=== PATIENT | male | born 1965 | race Caucasian/White ===

== ENCOUNTER → 2016-09-13 | Outpatient (CLI) | payer MEDICARE, OTHER ==
[~2016-09-13] MED LIST: ACETAMINOPHEN650 M1 PO; ADVAIR 250-501 EAC1 PO; ALBUTEROL17 GM INH; ALPRAZOLAM1 MG PO; BACLOFEN10 MG PO; D-20002000 UNIT PO; FOLIC ACID1 MG PO; HYDROCODON-ACE1 EAC5 PO; INDERAL20 MG PO; K-DUR20 ME2 PO; LEVAQUIN PO; LEVAQUIN750 M1 PO; LIORESAL10 MG PO; LITHIUM PO; LITHOBID SR300 MG PO; MOBIC15 MG PO; MODAFINIL200 MG PO; OMNICEF300 M1 PO; OMNICEF300 MG PO; PERCOCET 5-3251 TAB PO; PERPHENAZINE2 MG PO; PHENERGAN PO; PHENERGAN25 M1 DOB; PREDNISONE PO; PREVACID 24HR15 MG PO; PROAIR RESPICL90 MCG INH; PROTONIX PO; REMERON15 MG PO; SEROQUEL PO; SEROQUEL400 MG PO; TESSALON PERLE100 M1 PO; VISTARIL50 MG PO; VITAMIN D31000 UNIT PO; VRAYLAR1.5 MG PO; ZYVOX600 MG PO
--- NOTE | ~2016-09-13 | CT55 ---
[facility] A Service of [facility] & [facility] RADIOLOGY TEXT RESULTS PATIENT: NICOLA DÍAZ LOCATION: [facility] : [birth year] UNIT #: [id number] AGE: [address]: Alberto Mancini MD SEX: M ORDER DR: [id number] [facility] [address] [place], [place] [address] [id number] O MR#: [id number] Acc #: [id number] NAME: NICOLA DÍAZ : 1965 SEX: M STUDY DATE/TIME: 09/13/2016 15:19 UNIT: [facility] ROOM: STUDY DESCRIPTION: CT Chest W Con Attending Physician: Alberto Mancini M.D. Referring Physician: Alberto Mancini M.D. Ordering Physician: Alberto Mancini M.D. Primary Care Physician: Renee Tracey M.D. MEDICAL IMAGING REPORT This report is preliminary unless electronic signature is present EXAM Chest CT 09/13/2016 INDICATIONS Lung cancer. Followup. Observation for suspected malignant neoplasm and active malignancy. Chemotherapy most recently performed 2 weeks ago. Radiation therapy 1 month ago. Lung cancer diagnosed in April 2016. Chest pain when coughing, especially on the right side since May of this year. Intermittent shortness of air. TECHNIQUE Contrast enhanced CT chest was performed and compared with 06/21/[address] Chest: Background changes of emphysema are present. The patient is status post upper lobectomy on the right. No new effusion. Interval resolution of a right-sided hydropneumothorax. No residual pleural fluid. 2 cm ground-glass opacity in the subpleural upper lobe on the left has become less conspicuous compared to the prior study. There are subcentimeter areas of nodular ground-glass attenuation in the left lower lobe likely inflammatory or infectious but warranting followup to reassess stability or resolution over time after appropriate therapy. There are areas of minimal atelectasis in the right lower lobe. There is volume loss on the right related to the surgery. Included thyroid is unremarkable. Trace pericardial fluid/pericardial thickening with a maximum thickness of 1 cm. There is no axillary adenopathy. Redemonstration of low attenuation within the right perihilar region. Dimensions 3.6 x 2.1 cm previously 2.5 x 2.6 cm at a comparable level. It is nonspecific and could represent adenopathy. Residual postoperative fluid collection or persistent hematoma as previously described. There has been interval decrease in soft tissue nodularity at STS. [facility] A Service of [facility] & [facility] RADIOLOGY TEXT RESULTS PATIENT: NICOLA DÍAZ LOCATION: [facility] : 69 UNIT #: [id number] AGE: [address]: Alberto Mancini MD SEX: M ORDER DR: the subcarinal station. No new adenopathy. Aorta demonstrates no aneurysm or dissection. Included upper abdomen demonstrates surgical absence of the gallbladder and is otherwise unremarkable. There is no new suspicious bone lesion. Thoracotomy changes involving multiple right-sided ribs. IMPRESSION 1. Interval improvement in the appearance of the chest compared to the prior study. Postop changes of upper lobectomy on the right. Resolution of pleural fluid and the right-sided pneumothorax. 2. Resolution of soft tissue in the subcarinal station. Persistent nonspecific soft tissue density within the right perihilar station stable to slightly larger than on the prior study although a portion of the change may be technical in nature. Attention on followup recommended. 3. Subtle subcentimeter ground-glass opacities in the left lower lobe. These are probably infectious or inflammatory but warrant attention on followup studies to reassess stability. Interval decrease in conspicuity of a larger ground-glass opacity in the upper lobe on the left measuring up to 2 cm. Upper abdomen appears negative. No new suspicious bone lesions. Dictated by... Rosendo Canales M.D. THIS IS AN ELECTRONICALLY VERIFIED REPORT Rosendo Canales M.D. at 09/14/2016 4:16 PM LAKESHA/flor[place] TD: 09/14/2016 10:17 JOB #: [id number] MEDICAL IMAGING REPORT Page 1 of 1 COPY
[2016-09-13 15:11] LABS: POC - CREATININE 1.05 mg/dL (0.64-1.27); POC - GFR >60.0 mL/min (>60)
== END | disposition home or self-care (01) ==
LOC: CCAT 14:36
PROVIDERS: Radiology Radiation Oncology
DX: C34.90 Malignant neoplasm of unspecified part of unspecified bronchus or lung (principal); J90 Pleural effusion, not elsewhere classified; J95.811 Postprocedural pneumothorax; R91.8 Other nonspecific abnormal finding of lung field
CPT/HCPCS: 71260; 82565; J1642; Q9967

== ENCOUNTER 2016-10-22 14:27 | Inpatient (IN) | payer MEDICARE, OTHER ==
--- NOTE | ~2016-10-22 | DS ---
Unit #: [id number] #: [id number] Patient: NICOLA DÍAZ [id number] [place], [place] [address] [id number] I MR#: [id number] NAME: NICOLA DÍAZ. ROOM: 339 Age: 51 Sex: M Admission Date: 10/22/2016 : 1965 Discharge Date: 10/25/2016 Attending Physician: Terra Garcia M.D. Primary Care Physician: Renee Tracey M.D. DISCHARGE SUMMARY DIAGNOSES ON ADMISSION 1. Right lower lobe pneumonia. 2. Sepsis. DIAGNOSES ON DISCHARGE 1. Right lower lobe pneumonia. 2. Non-small cell lung carcinoma. 3. Anemia of chronic disease. 4. Chronic obstructive pulmonary disease. 5. Congestive heart failure. 6. History of colon cancer. 7. Lopez esophagus. 8. Hiatal hernia. 9. Posttraumatic stress disorder. 10. Fibromyalgia. 11. Depression. 12. Bipolar disorder. 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 CONSULTATION Dr. Ko Jang - Oncology consultation. LABS AND PROCEDURES DONE The patient's creatinine is 0.8, sodium 139, potassium is 3.7. WBC 11.5, hemoglobin 8.6, platelet count 234. Sputum culture and sensitivity revealed normal respiratory mala. CT scan of abdomen and pelvis revealed right lower lobe pneumonia. There were findings of diffuse thickening in lower esophagus suggestive of esophagitis. HOSPITAL COURSE 51-year-old male was admitted to [facility] with pneumonia. Details are as per admission H and P. Right lower lobe pneumonia: The patient was treated with IV antibiotics. He is feeling much better and white blood cell has improved and he is afebrile. Anemia: The patient has anemia secondary to chronic disease. He received IV iron. The patient's hemoglobin is better now. Unit #: [id number] #: [id number] Patient: NICOLA DÍAZ Non-small cell lung carcinoma: The patient was followed up by Dr. Ko Jang who will follow up on outpatient visits. Today, patient is comfortable. He is not in any acute distress, wants to go home. MEDICATIONS ON DISCHARGE 1. Hydrocodone 10 mg, one p.o. q.6 hours p.r.n., #60. The script was written by Dr. Jang. 2. Proventil inhaler two puffs q.4 hours p.r.n. shortness of air. 3. Advair Diskus 250/50, one inhalation b.i.d. 4. Tylenol 650 mg p.o. q.6 hours p.r.n. 5. Phenergan 25 mg p.o. q.4 hours p.r.n. nausea. 6. Mcrae-[place] carbonate 600 mg p.o. b.i.d. 7. Perphenazine 2 mg p.o. daily. 8. Vraylar 1.5 mg p.o. q. h.s. 9. Seroquel 500 mg p.o. q. h.s. 10. Xanax 1 mg p.o. q. h.s. 11. Provigil 200 mg p.o. every morning. 12. Prevacid 15 mg p.o. daily. 13. Baclofen 10 mg p.o. t.i.d. 14. Folic acid 1 mg p.o. t.i.d. [id number]. 15. Vitamin D 2000 units subcu q. h.s. 16. Omnicef 300 mg p.o. b.i.d. for five days. FOLLOWUP The patient is advised to follow up with primary care physician in one week, and is advised to follow up with Dr. Jang as recommended. The patient is advised to call primary care physician and go to ER if his condition changes. The plan was discussed in detail with patient who showed complete understanding. Dictated by... Adrián Knapp/misha TD: 10/25/2016 13:16 JOB #: [id number] CC: Ko Jang M.D. DISCHARGE SUMMARY Page 1 of 1 X Terra Gacria MD X DISCHARGE SUMMARY
--- NOTE | ~2016-10-22 | CT4 ---
[facility] A Service of [facility] & [facility] RADIOLOGY TEXT RESULTS PATIENT: NICOLA DÍAZ LOCATION: [facility] 339-01 : [birth year] UNIT #: [id number] AGE: [address]: LATISHA HERNÁNDEZ MD SEX: M ORDER DR: [id number] [facility] [address] [place], [place] [address] [id number] I MR#: [id number] Acc #: [id number] NAME: NICOLA DÍAZ. : 1965 SEX: M STUDY DATE/TIME: 10/22/2016 15:53 UNIT: A PCU ROOM: [facility] STUDY DESCRIPTION: CT Abd and Pelv Wo Cont Attending Physician: Latisha Hernández M.D. Ordering Physician: Ze To M.D. Primary Care Physician: Renee Tracey M.D. MEDICAL IMAGING REPORT This report is preliminary unless electronic signature is present EXAM CT abdomen and pelvis, 10/22/2016 INDICATION The patient finish chemotherapy 2 weeks ago for colon cancer. The patient now has a fever. TECHNIQUE Axial noncontrast images were obtained through the abdomen and pelvis. Multiplanar reformats were obtained. Comparison made with a PET CT from 04/25/[address] from 09/13/[address]. [address] exam was performed with one or more of the following radiation dose reduction techniques: automatic exposure control, adjustment of mA and/or kV according to patient size, and iterative reconstruction. FINDINGS ABDOMEN: There is new right lower lobe pneumonia. There is some circumferential wall thickening in the lower esophagus which may indicate esophagitis. This is new from the prior PET CT. Gallbladder surgically absent. No biliary obstruction. There is a nonobstructing 3 mm stone in the right kidney. No ureteral stones are seen on either side, and there is no hydronephrosis. The unenhanced solid organs are otherwise normal. No free fluid or adenopathy. The remainder of the unopacified GI tract is normal. PELVIS: Urinary bladder is normal. There are no lower ureteral stones. There is no free fluid. The unopacified GI tract is within normal limits. No adenopathy is seen. No suspicious osseous lesions in the abdomen or pelvis. IMPRESSION [facility]. [facility] A Service of [facility] & [facility] RADIOLOGY TEXT RESULTS PATIENT: NICOLA DÍAZ LOCATION: [facility] 339-01 : [birth year] UNIT #: [id number] AGE: [address]: LATISHA HERNÁNDEZ MD SEX: M ORDER DR: 1. Right lower lobe pneumonia. 2. Wall thickening in the lower esophagus suggesting esophagitis. Correlate clinically in this regard. 3. No evidence of metastatic disease in the abdomen or pelvis. 4. Nonobstructing stone in the right kidney. No ureteral stones on either side, and no hydronephrosis. 5. Remainder of the GI tract is grossly normal. 6. Cholecystectomy. Dictated by... Zachary Moreau Jr., M.D. THIS IS AN ELECTRONICALLY VERIFIED REPORT Zachary Moreau Jr., M.D. at 10/22/2016 10:36 PM ABIGAIL/evan TD: 10/22/2016 22:19 JOB #: [id number] MEDICAL IMAGING REPORT Page 1 of 1 COPY
--- NOTE | ~2016-10-22 | CO ---
Unit #: [id number] #: [id number] Patient: NICOLA DÍAZ [id number] [place], [place] [address] [id number] I MR#: [id number] NAME: NICOLA DÍAZ. ROOM: 339 Age: 51 Sex: M Admission Date: 10/22/2016 : 1965 Attending Physician: Terra Garcia M.D. Primary Care Physician: Renee Tracey M.D. CONSULTATION REPORT CHIEF COMPLAINT Non-small cell lung cancer, pleomorphic, sarcomatoid carcinoma, right upper lobe resection, left-sided lung biopsy, positive for non-small cell lung cancer, SBRT on the left side, completed 4 cycles of Carbo/Taxol, now has right lower lobe pneumonia. HISTORY OF PRESENT ILLNESS This is a 51-year-old male who, in the past had colon cancer twice. He had resection and was (1) . At present there is no sign of disease. There is no record. This was in [place]. We could not get the records. Recently, he was hospitalized with chest pain, shortness of breath, dyspnea on exertion, hemoptysis. CT of chest showed a 6 x 7 x 3 cm right superior lobe/right paratracheal mass. Patient had bronchoscopy. Pathology positive for non-small cell lung cancer. Patient had biopsy of the left side; it was also positive for adenocarcinoma. Patient had right lower lobectomy on "October 23, 2016." The size of the tumor was 6.1 x 5.4 x 3.5 cm. One of the lymph nodes positive. It is T2b, N1, M0, stage IIIA. On the left side, it is adenocarcinoma. On the right side it turned out to be pleomorphic sarcomatoid carcinoma. He completed radiation of the left side. He has completed 4 cycles of Carbo/Taxol. 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 In the night he developed fever, chills, nausea, vomiting, cough and chills. He came to ER, had a chest x-ray. It showed possible right lower lobe infiltrate. The patient had a CT of the abdomen and pelvis, which showed esophagitis and right lower lobe infiltrate. He is receiving antibiotics, feeling better, still has mild cough. . REVIEW OF SYSTEMS CONSTITUTIONAL: No fever, no chills, no sweats, no weight loss. EYES: No visual symptoms. EARS, NOSE AND THROAT: There is no runny nose or sore throat or difficulty hearing. CARDIOVASCULAR: No chest pain. No shortness of breath. No palpitations. No orthopnea. No PND. RESPIRATORY: As mentioned above. GASTROINTESTINAL: No nausea, vomiting, diarrhea, constipation, hematochezia or melena. GENITOURINARY: No urinary frequency, hesitancy or urgency. No blood in the urine. MUSCULOSKELETAL: No muscle or joint pain. NEUROLOGIC: No headache. No numbness or tingling. No weakness. No Unit #: [id number] #: [id number] Patient: NICOLA DÍAZ. PSYCHIATRIC: No anxiety, depression or mood disturbance. ENDOCRINE: No excessive urination or thirst. DERMATOLOGIC: No rash or change in the skin. ALLERGIC/IMMUNOLOGIC: No symptoms. HEMATOLOGIC/LYMPHATIC: Denies any symptoms. PAST MEDICAL HISTORY 1. Non-small cell lung cancer both sides of the lungs, right side resected, received Carbo/Taxol. Left side received SBRT. No sign of disease. 2. PTSD. 3. Hiatal hernia. 4. Bilateral. 5. Lopez esophagus. 6. Colon cancer, age of 28 and 38. Resection, chemo. No records available but no sign of disease. ALLERGIES He has allergies to multiple medications, including trazodone. SURGICAL HISTORY 1. Cholecystectomy. 2. Appendectomy. FAMILY HISTORY Mother had breast cancer. Grandmother breast cancer. Father had lung cancer. SOCIAL HISTORY The patient started smoking at the age of 9. Has been smoking 2 packs per day for 20 years. Denies alcohol. Quit smoking several years ago. CURRENT MEDICATIONS Trilafon, Protonix, Zofran, Xanax, Seroquel, Maxipime, IV fluids, Provigil. PHYSICAL EXAMINATION VITALS: In the hospital highest temperature 100.5, now it is 98.4. Pulse 94, respiratory rate 18, O2 sats on 2 liters 98%, blood pressure 124/74. HEENT: Moist mucosa. Pupils equally reactive to light. Extraocular muscles intact. Sclerae anicteric. No obvious bleeding from nasal mucosa or oral mucosa. Scalp normal. Hearing normal. NECK: No JVD. No lymphadenopathy. LYMPHATIC/HEMATOLOGIC: There is no palpable adenopathy in the neck, axilla or inguinal area. CARDIOVASCULAR: S1, S2. Regular rate and rhythm. No S3 or S4. RESPIRATORY: Chest symmetrical, normal. Clear to auscultation bilaterally. No wheezes, no rales, no rhonchi. No dullness to percussion. ABDOMEN/GASTROINTESTINAL: Abdomen is soft, nontender, nondistended. No hepatosplenomegaly. EXTREMITIES: There is no clubbing, no cyanosis, no edema. No varicose veins. NEUROLOGICAL: Patient is alert, awake and oriented x3. Cranial nerves II-XII are intact. Sensory grossly intact. Motor is 4/5 in all four extremities. Gait is normal. Station is normal. Language is normal. Memory is normal. DTRs +2 in all four extremities. MUSCULOSKELETAL: No joint swelling. No bony tenderness. No muscle Unit #: [id number] #: [id number] Patient: NICOLA DÍAZ. SKIN: No petechiae, no rash, no ecchymosis. PSYCHIATRIC: No anxiety. No delusions or hallucinations. There is no agitation. Eye contact is normal. Affect is appropriate. There is no flight of ideas. DIAGNOSTIC STUDIES IMAGING STUDIES: As mentioned above. LABS: WBC 15, hemoglobin 8.2, MCV 84, platelets 161. Creatinine 0.9. LFTs are normal. ASSESSMENT AND PLAN This is a 51-year-old male who has the following active issues: 1. Non-small cell lung cancer. It is a unique situation. The tumor is pleomorphic, sarcomatoid carcinoma. It is stage IIIA on the right side of the lung. It was resected. On the left side of the lung, there is independent stage I primary. It is adenocarcinoma. After the right-sided surgery, he received SBRT of the lung mass. He has completed 4 cycles of Carbo/Taxol. Imaging study will be done in about 2 months. At present there is no sign of disease. 2. Respiratory. He has right lower lobe pneumonia. Probably he got exposed to people who have infection on the street when he was distributing food. He is receiving antibiotics. He has a cough. I will give him Tessalon Perles. 3. Psychiatric. He has PTSD. He is on multiple medications. He is stable. Dictated by... Adrián Padilla TD: 10/23/2016 12:12 JOB #: [id number] CONSULTATION REPORT Page 1 of 1 X Ko Jang MD CONSULTATION REPORT
--- NOTE | ~2016-10-22 | HP ---
Unit #: [id number] #: [id number] Patient: NICOLA DÍAZ [id number] [address] [address] [id number] I MR#: [id number] NAME: NICOLA DÍAZ. ROOM: 65640 Age: 51 Sex: M Admission Date: 10/22/2016 : 1965 Attending Physician: Latisha Hernández M.D. Primary Care Physician: Renee Tracey M.D. HISTORY AND PHYSICAL CHIEF COMPLAINT Fever. HISTORY OF PRESENT ILLNESS The patient is a 51-year-old male with a history of colon cancer, COPD, CHF, Lopez esophagus, hiatal hernia, and GERD, who presented to the emergency department complaining of fever. The patient finished chemo two weeks ago and started having fever last Saturday. The patient's T-max was 101.1. The patient tried to call the answering service but no one replied, so he called the triage unit this morning and was recommended to come to the hospital. The patient had a CT of the abdomen and pelvis that showed patient has right lower lobe pneumonia and esophagitis, and the patient is being admitted for the above reasons. The patient also complains of intermittent nonproductive cough. He denies any sick contacts. PAST MEDICAL HISTORY 1. Chronic obstructive pulmonary disease. 2. Congestive heart failure. 3. Colon cancer, status post polypectomy and chemotherapy. 4. Lopez esophagus. 5. Hiatal hernia. 6. Gastroesophageal reflux disease. 7. Posttraumatic stress disorder. 8. Fibromyalgia. 9. History of tremor versus seizures. PAST SURGICAL HISTORY Polypectomy and colonoscopy. SOCIAL HISTORY Patient has a 30 pack-year smoking history. He quit smoking four months ago. He denies alcohol or any illicit drug abuse. FAMILY HISTORY Notable for parents having COPD. ALLERGIES Codeine, Ambien, Risperdal, and trazodone. MEDICATIONS 1. Vitamin D3. 2. Prevacid. 3. Modafinil. Unit #: [id number] #: [id number] Patient: NICOLA DÍAZ 4. Alprazolam. 5. Lioresal. 6. Seroquel. 7. Perphenazine. 8. Phenergan. 9. Advair. 10. [place]. 11. ProAir. 12. Vraylar. REVIEW OF SYSTEMS A 14-point review of systems was performed and only pertinent positive findings are described above. The remaining are negative. PHYSICAL EXAMINATION GENERAL: Patient is lying in bed not in acute distress. VITAL SIGNS: Temperature 98.5, pulse 130, respiratory rate 18, blood pressure 153/89, and saturating 98% on room air. HEENT: Head atraumatic, normocephalic. Pupils equal, round, and reactive to light and accommodation. Dry mucous membranes. NECK: Supple. LUNGS: Crackles at the right base. Decreased air entry. CHEST: Patient has a port on the right side with no drainage and no tenderness. HEART: Regular rate and rhythm. ABDOMEN: Soft. Positive bowel sounds. EXTREMITIES: No cyanosis, no clubbing. NEUROLOGIC: Alert, awake, and oriented. No gross focal motor deficit. DIAGNOSTIC STUDIES LABORATORY: Sodium 137, potassium 3.8, chloride 102, bicarb 23, glucose 108, BUN 7, creatinine 0.9, AST 26, and ALT 30. Lipase 11. INR is 1. WBC 23.6, hemoglobin 9.5, hematocrit 29.6, platelets 192,000, and neutrophils 90%. Lactic acid 1.4. Troponin less than 0.05. IMAGING: CT of the abdomen shows right lower lobe pneumonia and esophagitis. ASSESSMENT 1. Right lower lobe pneumonia. 2. History of colon cancer, status post chemotherapy. 3. Sepsis. PLAN Admit the patient to inpatient. Patient will be on IV fluids per protocol. Continue with IV Maxipime 1 gram q.12. Follow up blood cultures and sputum cultures, and further recommendations will follow. Dictated by Adrián Barreto TD: 10/22/2016 18:22 JOB #: [id number] Unit #: [id number] #: [id number] Patient: NICOLA DÍAZ HISTORY AND PHYSICAL Page 1 of 1 X LATISHA HERNÁNDEZ MD HISTORY AND PHYSICAL
--- NOTE | ~2016-10-22 | EKG ---
PATIENT: NICOLA DÍAZ UNIT #: [id number] Ventricular Rate: 123 BPM Atrial Rate: 123 BPM P-R Interval: 144 ms QRS Duration: 76 ms Q-T Interval: 322 ms QTC Calculation(Bezet): 460 ms P [place]: 62 degrees Calculated R [place]: -18 degrees Calculated T [place]: 62 degrees Diagnosis Line: Sinus tachycardia Diagnosis Line: Otherwise normal ECG Diagnosis Line: When compared with ECG of 19-APR-2016 12:56, Diagnosis Line: Vent. rate has increased BY 57 BPM Diagnosis Line: Confirmed by ANDREW LIZARRAGA MD ([id number]) on Diagnosis Line: 10/23/2016 9:09:28 PM INTERPRETING MD: LISETTE
--- NOTE | ~2016-10-22 | CR72 ---
[facility] A Service of [facility] & [facility] RADIOLOGY TEXT RESULTS PATIENT: NICOLA DÍAZ LOCATION: [facility] 339-01 : [birth year] UNIT #: [id number] AGE: [address]: LATISHA HERNÁNDEZ MD SEX: M ORDER DR: [id number] [facility] [address] [place], [place] [address] [id number] I MR#: [id number] Acc #: [id number] NAME: NICOLA DÍAZ. : 1965 SEX: M STUDY DATE/TIME: 10/22/2016 15:30 [facility] STUDY DESCRIPTION: CR Chest Single View Portable Attending Physician: Latisha Hernández M.D. Ordering Physician: [id number] Z[place]ika To Primary Care Physician: eRnee Tracey M.D. MEDICAL IMAGING REPORT This report is preliminary unless electronic signature is present EXAM Portable chest. INDICATIONS Lung cancer, fever today and vomiting, recently finished chemotherapy. COMPARISON 07/20/2016 FINDINGS There is some generalized increased density in the right lower zone which may represent pneumonitis or could be some scarring. No definite acute infiltrate on the left. Heart size stable. Chest port in place. Volume loss in the right lung. IMPRESSION Volume loss in the right lung with some increased density in the right lower zone which may be pneumonitis or could be scarring. Correlate clinically. Dictated by... Jag Vee M.D. THIS IS AN ELECTRONICALLY VERIFIED REPORT Jag Vee M.D. at 10/23/2016 7:38 AM RODRICK/luisa TD: 10/22/2016 20:57 JOB #: [id number] MEDICAL IMAGING REPORT Page 1 of 1 COPY
[~2016-10-22 14:27] MED LIST changes: -ADVAIR 250-501 EAC1 PO; -ALBUTEROL17 GM INH; -ALPRAZOLAM1 MG PO; -D-20002000 UNIT PO; -FOLIC ACID1 MG PO; -HYDROCODON-ACE1 EAC5 PO; -K-DUR20 ME2 PO; -LEVAQUIN PO; -LIORESAL10 MG PO; -LITHIUM PO; -MODAFINIL200 MG PO; -OMNICEF300 M1 PO; -OMNICEF300 MG PO; -PERPHENAZINE2 MG PO; -PHENERGAN PO; -PHENERGAN25 M1 DOB; -PREVACID 24HR15 MG PO; -PROAIR RESPICL90 MCG INH; -SEROQUEL PO; -TESSALON PERLE100 M1 PO; -VITAMIN D31000 UNIT PO; -VRAYLAR1.5 MG PO; -ZYVOX600 MG PO
[2016-10-22] MEDS ORDERED: VITAMIN D31000 UNIT PO (15:45)
[2016-10-22] MEDS ORDERED: MODAFINIL200 MG PO (15:45)
[2016-10-22] MEDS ORDERED: PREVACID 24HR15 MG PO (15:45)
[2016-10-22] MEDS ORDERED: ALPRAZOLAM1 MG PO (15:46)
[2016-10-22] MEDS ORDERED: LIORESAL10 MG PO (15:46)
[2016-10-22] MEDS ORDERED: SEROQUEL PO (15:46)
[2016-10-22] MEDS ORDERED: PERPHENAZINE2 MG PO (15:47)
[2016-10-22] MEDS ORDERED: ADVAIR 250-501 EAC1 PO (15:48)
[2016-10-22] MEDS ORDERED: LITHIUM PO (15:48)
[2016-10-22] MEDS ORDERED: PHENERGAN PO (15:48)
[2016-10-22] MEDS ORDERED: PROAIR RESPICL90 MCG INH (15:49)
[2016-10-22] MEDS ORDERED: VRAYLAR1.5 MG PO (15:49)
[2016-10-22 15:55] LABS: POC - CKMB <1.0 ng/mL (0.0-7.9); POC - TROPONIN <0.05 ng/mL (<=0.05)
[2016-10-22 16:01] LABS: BASOPHIL% 0.2 % (0-2.5); EOSINOPHIL# 0.1 X10e3 (0-0.7); EOSINOPHIL% 0.4 % (0.0-7.0); HEMATOCRIT 29.6 % (38.0-50.0); HEMOGLOBIN 9.5 gm/dL (13.0-16.0); LYMPHOCYTE# 1.2 X10e3 (1.0-3.5); LYMPHOCYTE% 5.1 % (17.0-45.0); MEAN CELL VOLUME 84.4 FL (83-96); MEAN PLATELET VOLUME 7.9 FL (6.5-11.5); MONOCYTE% 4.1 % (3.0-12.0); NEUTROPHIL# 21.3 X10e3 (1.5-7.1); NEUTROPHIL% 90.2 % (40-75); PLATELET COUNT 192 X10e3 (140-420); RED BLOOD COUNT 3.51 X10e (3.90-5.60); WHITE BLOOD COUNT 23.6 X10e3 (4.0-10.5)
[2016-10-22 16:03] LABS: DIFF IND YES
[2016-10-22 16:05] LABS: PARTIAL THROMBOPLASTIN TIME 29.6 SECONDS (23.5-31.3); PROTHROMBIN TIME (PATIENT) 10.3 SECONDS (9.6-11.5)
[2016-10-22 16:21] LABS: PLATELET ESTIMATE NORMAL (NORMAL)
[2016-10-22 16:22] LABS: ANISOCYTOSIS MOD
[2016-10-22 16:57] LABS: ALBUMIN SERUM 3.6 g/dL (3.5-5.0); ALKALINE PHOSPHATASE 98 U/L (32-92); ALT (SGPT) 30 U/L (10-40); AMYLASE 7 U/L (0-46); AST (SGOT) 26 U/L (10-42); BILIRUBIN, DIRECT <0.1 mg/dL (0.0-0.2); BILIRUBIN,INDIRECT 0.3 mg/dL (0.0-0.9); BILIRUBIN,TOTAL 0.4 mg/dL (0.2-2.0); BLOOD UREA NITROGEN 7 mg/dL (9-23); BUN/CREATININE RATIO 7.77; CALCIUM SERUM 9.1 mg/dL (8.4-10.2); CARBON DIOXIDE 23 mmol/L (22-31); CHLORIDE 102 mmol/L (100-111); CREATININE SERUM 0.9 mg/dL (0.6-1.4); GLOM FILT RATE Estimated 99.9 mL/min (>60); GLUCOSE FASTING 108 mg/dL (70-110); LIPASE 11 U/L (22-51); POTASSIUM 3.8 mmol/L (3.5-5.1); PROTEIN TOTAL SERUM 7.2 g/dL (6.0-8.3); SODIUM 137 mmol/L (135-145)
[2016-10-22 18:48] LABS: URINE SOURCE CLEAN CATCH
[2016-10-22 19:04] LABS: URINE APPEARANCE CLEAR; URINE BILIRUBIN NEG (NEG); URINE BLOOD NEG (NEG); URINE COLOR YELLOW; URINE GLUCOSE NEG (NEG); URINE KETONE NEG (NEG); URINE LEUKOCYTE ESTERASE NEG (NEG); URINE NITRATE NEG (NEG); URINE PROTEIN NEG (NEG); URINE UROBILINOGEN 0.2 MG/DL (NEG)
[2016-10-22 19:21] LABS: CULTURE INDICATED? NO
[2016-10-22] MEDS ORDERED: D-20002000 UNIT PO (23:17)
[2016-10-23 05:44] LABS: HEMATOCRIT 25.1 % (38.0-50.0); HEMOGLOBIN 8.2 gm/dL (13.0-16.0); MEAN CELL VOLUME 84.4 FL (83-96); MEAN CORPUSCULAR HEMOGLOBIN 27.6 PG (28-34); MEAN CORPUSCULAR HGB CONC 32.7 g/dL (30-36); MEAN PLATELET VOLUME 7.2 FL (6.5-11.5); RED BLOOD COUNT 2.98 X10e (3.90-5.60); RED CELL DISTRIBUTION WIDTH 20.7 % (11.0-15.5)
[2016-10-23 06:53] LABS: BUN/CREATININE RATIO 6.66; CALCIUM SERUM 8.5 mg/dL (8.4-10.2); CREATININE SERUM 0.9 mg/dL (0.6-1.4); GLOM FILT RATE Estimated 99.9 mL/min (>60); POTASSIUM 3.7 mmol/L (3.5-5.1)
[2016-10-23 13:06] LABS: IRON SERUM 21 ug/dL (45-182); TOTAL IRON BINDING CAPACITY 281 ug/dL (252-460); TRANSFERRIN 201 mg/dL (180-329); TRANSFERRIN SATURATION 7 % (20-50)
[2016-10-23 15:20] LABS: FERRITIN 529 ng/mL (24-336)
[2016-10-24 05:47] LABS: HEMATOCRIT 26.5 % (38.0-50.0); HEMOGLOBIN 8.8 gm/dL (13.0-16.0); MEAN CELL VOLUME 83.9 FL (83-96); MEAN CORPUSCULAR HEMOGLOBIN 27.8 PG (28-34); MEAN CORPUSCULAR HGB CONC 33.1 g/dL (30-36); MEAN PLATELET VOLUME 7.6 FL (6.5-11.5); RED BLOOD COUNT 3.16 X10e (3.90-5.60); RED CELL DISTRIBUTION WIDTH 20.4 % (11.0-15.5); WHITE BLOOD COUNT 10.7 X10e3 (4.0-10.5)
[2016-10-24 07:06] LABS: ALBUMIN SERUM 3.1 g/dL (3.5-5.0); BILIRUBIN,TOTAL 0.4 mg/dL (0.2-2.0); BUN/CREATININE RATIO 7.77; CALCIUM SERUM 8.9 mg/dL (8.4-10.2); CREATININE SERUM 0.9 mg/dL (0.6-1.4); GLOM FILT RATE Estimated 99.9 mL/min (>60); POTASSIUM 3.8 mmol/L (3.5-5.1); PROTEIN TOTAL SERUM 6.3 g/dL (6.0-8.3)
[2016-10-25 05:35] LABS: HEMATOCRIT 27.2 % (38.0-50.0); HEMOGLOBIN 8.6 gm/dL (13.0-16.0); MEAN CELL VOLUME 85.4 FL (83-96); MEAN CORPUSCULAR HEMOGLOBIN 27.1 PG (28-34); MEAN CORPUSCULAR HGB CONC 31.7 g/dL (30-36); MEAN PLATELET VOLUME 7.9 FL (6.5-11.5); RED BLOOD COUNT 3.18 X10e (3.90-5.60); RED CELL DISTRIBUTION WIDTH 20.7 % (11.0-15.5); WHITE BLOOD COUNT 11.5 X10e3 (4.0-10.5)
[2016-10-25 06:26] LABS: ALBUMIN SERUM 3.1 g/dL (3.5-5.0); BILIRUBIN,TOTAL 0.3 mg/dL (0.2-2.0); BUN/CREATININE RATIO 12.5; CALCIUM SERUM 8.9 mg/dL (8.4-10.2); CREATININE SERUM 0.8 mg/dL (0.6-1.4); GLOM FILT RATE Estimated 104.9 mL/min (>60); POTASSIUM 3.7 mmol/L (3.5-5.1); PROTEIN TOTAL SERUM 6.7 g/dL (6.0-8.3)
[2016-10-25] MEDS ORDERED: HYDROCODON-ACE1 EAC5 PO (14:31)
[2016-10-25] MEDS ORDERED: OMNICEF300 M1 PO (14:32)
[2016-10-25] MEDS ORDERED: PHENERGAN25 M1 DOB (14:35)
[2016-10-25] MEDS ORDERED: FOLIC ACID1 MG PO (14:42)
[2016-10-25] MEDS ORDERED: ALBUTEROL17 GM INH (14:43)
== END 2016-10-25 15:43 | disposition home or self-care (01) | DRG 871 ==
LOC: CED 14:27 → CEDOF 17:30 → C3A PCU 17:30 → CEDOF 18:05 → CED 18:05 → C3A PCU 19:48 → CEDOF 19:48 → C3A PCU 10-23 08:23
PROVIDERS: Emergency Medicine; Internal Medicine
DX: A41.9 Sepsis, unspecified organism (principal); J18.9 Pneumonia, unspecified organism; C77.1 Secondary and unspecified malignant neoplasm of intrathoracic lymph nodes; C34.91 Malignant neoplasm of unspecified part of right bronchus or lung; J44.0 Chronic obstructive pulmonary disease with (acute) lower respiratory infection; C34.92 Malignant neoplasm of unspecified part of left bronchus or lung; D63.0 Anemia in neoplastic disease; Z85.038 Personal history of other malignant neoplasm of large intestine; F43.10 Post-traumatic stress disorder, unspecified; K44.9 Diaphragmatic hernia without obstruction or gangrene; M79.7 Fibromyalgia; K21.9 Gastro-esophageal reflux disease without esophagitis; F31.9 Bipolar disorder, unspecified; Z90.49 Acquired absence of other specified parts of digestive tract; K22.70 Barrett's esophagus without dysplasia; Z85.89 Personal history of malignant neoplasm of other organs and systems; Z87.891 Personal history of nicotine dependence; Z88.5 Allergy status to narcotic agent; Z88.8 Allergy status to other drugs, medicaments and biological substances
CPT/HCPCS: 71010; 74176; 80048; 80053; 80076; 81003; 82150; 82553; 82607; 82728; 83540; 83550; 83605; 83690; 84484; 85025; 85027; 85610; 85730; 87040; 87070; 87205; 93005; 94640; 94664; 94760; 96361; 96374; 99291; C9113; J0456; J0692; J0696; J2405; J2550; J2916; J3370

== ENCOUNTER 2016-11-02 12:35 | Inpatient (IN) | payer MEDICARE, OTHER ==
--- NOTE | ~2016-11-02 | HP ---
Unit #: [id number] #: [id number] Patient: NICOLA DÍAZ [id number] [facility]. [place], [place] [address] [id number] I MR#: [id number] NAME: NICOLA DÍAZ. ROOM: 341 Age: 51 Sex: M Admission Date: 11/02/2016 : 1965 Attending Physician: Rita Parker M.D. Primary Care Physician: Renee Tracey M.D. HISTORY AND PHYSICAL CHIEF COMPLAINT Fever, history of pneumonia. HISTORY OF PRESENT ILLNESS The patient is a 51-year-old male with past medical history of lung cancer, chronic anemia, COPD, CHF, colon cancer, Lopez esophagus, hiatal hernia, PTSD, fibromyalgia, depression, bipolar disorder, who presented to the emergency department for evaluation of the above. The patient was hospitalized at [facility] 10/22 through 10/25/2016 for right lower lobe pneumonia and sepsis. He was discharged home on Omnicef. His last dose of Omnicef was yesterday. This morning he had fever to 102.7. He also had an episode of vomiting. He states that he has continued to have productive cough. He has had chest wall pain in association with cough. He has been feeling generally weak. In the emergency department, initial oxygen saturation was 100% on room air, pulse 111. White blood cell count is 22.7. He was given vancomycin and Zosyn in the emergency department as well as 125 mg of Solu-Medrol and 1 liter of normal saline. He is being admitted to [facility] for evaluation and further treatment. PAST MEDICAL HISTORY 1. Admission to [facility] 10/22 through 10/25/2016 for right lower lobe pneumonia and sepsis. Sputum culture and sensitivity grew normal respiratory mala. He was discharged home on Omnicef. I do not see that he was discharged home on prednisone. 2. 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 The patient received radiation treatment, the last was in August 2016 per the patient. He also received chemotherapy, the last dose was 3 weeks ago. He is followed by Dr. Jang. 3. Chronic anemia. 4. COPD not on home oxygen. The patient has seen Dr. Doyle in the past. 5. Congestive heart failure with unknown ejection fraction. 6. Colon cancer, status post polypectomy and chemotherapy. His last chemotherapy for colon cancer was in 2012. 7. Lopez esophagus. 8. Hiatal hernia. 9. PTSD. 10. Fibromyalgia. 11. Depression. 12. Bipolar disorder. Unit #: [id number] #: [id number] Patient: NICOLA DÍAZ 13. History of possible seizure, not on antiepileptic medication. PAST SURGICAL HISTORY 1. Polypectomy. 2. Colonoscopy. 3. Right upper lobectomy. 4. Port placement. 5. Appendectomy. 6. Cholecystectomy. ALLERGIES 1. Codeine. 2. Zolpidem. 3. Risperdal. 4. Trazodone. HOME MEDICATIONS 1. Vitamin D3 2000 units daily. 2. Prevacid 15 mg daily. 3. Modafinil 200 mg daily. 4. Alprazolam 1 mg h.s. 5. Baclofen 10 mg t.i.d. 6. Seroquel 500 mg h.s. 7. Perphenazine 2 mg daily. 8. Advair 250/50 inhaled b.i.d. 9. [place] 600 mg b.i.d. 10. Vraylar 1.5 mg h.s. 11. Vitamin D 2000 units h.s. 12. Hydrocodone/acetaminophen 10/325 q.6 h. p.r.n. 13. Phenergan 25 mg q.4 h. p.r.n. 14. Folic acid 1 mg daily. 15. Ventolin 2 puffs q.4 h. p.r.n. SOCIAL HISTORY The patient has a 86-dxoe-exly history of smoking. He quit smoking. No alcohol or illicit drug use. FAMILY HISTORY Notable for both parents having COPD. REVIEW OF SYSTEMS A complete review of systems is negative except as indicated in the HPI. PHYSICAL EXAMINATION VITAL SIGNS: Temperature 97.9, pulse 111, respirations 20, blood pressure 137/86, oxygen saturation 100% on room air. GENERAL: The patient is a male who is awake and alert in no acute distress. HEENT: Head is atraumatic. Mucous membranes are moist. NECK: Supple. Trachea is midline. LUNGS: A few scattered wheezes. Breathing is not labored. HEART: Tachycardic in the 100s. ABDOMEN: Soft, nontender. Bowel sounds present in all four quadrants. EXTREMITIES: Nontender with no pedal edema. NEUROLOGIC: Patient is awake and alert. He follows commands. PSYCHIATRIC: Mood and affect are normal. Patient is cooperative. SKIN OF EXAMINED AREAS: Warm and dry. Unit #: [id number] #: [id number] Patient: NICOLA DÍAZ DIAGNOSTIC STUDIES LABORATORY: Blood cultures from 10/22/2016 showed no growth after 5 days x2. INR is 1. Complete blood count notable for white blood cell count of 22.7, hemoglobin 10.8, hematocrit 33.5. Comprehensive metabolic panel notable for a sodium of 133, chloride 98, ALT 45, alkaline phosphatase 106, total protein 8.5, lactic acid 1.3. Troponin less than 0.05. IMAGING: Chest x-ray shows right pulmonary infiltrates. CARDIOVASCULAR: EKG shows sinus tachycardia with a rate of 110 beats per minute. ASSESSMENT The patient is a 51-year-old male with: 1. Healthcare-associated pneumonia. The patient received vancomycin and Zosyn in the emergency department. 2. Sepsis with an initial lactic acid of 1.3. 3. History of lung cancer, non-small cell, pleomorphic sarcomatoid per Dr. Jang's consultation note dated 10/23/2016. He is status post right upper lobectomy, chemotherapy and radiation. Followed by Dr. Jang. 4. Chronic obstructive pulmonary disease exacerbation. The patient received Solu-Medrol in the emergency department. 5. Congestive heart failure with an unknown ejection fraction. 6. History of colon cancer. 7. Lopez esophagus. 8. Hiatal hernia. 9. PTSD. 10. Fibromyalgia. 11. Depression. 12. Bipolar disorder. PLAN 1. Admit to intermediate level. 2. Healthy-heart diet. 3. Blood cultures x2. 4. Sputum culture and sensitivity. 5. Procalcitonin level. 6. Streptococcal and legionella urine antigens. 7. Supplement oxygen. 8. DuoNeb. 9. Solu-Medrol 80 mg IV q.12 h. 10. Vancomycin, tobramycin, and Zosyn for healthcare-associated pneumonia pending further workup. 11. Serial cardiac enzymes. 12. P.r.n. Zofran. 13. Consult Dr. Jang regarding lung cancer. 14. Sepsis protocol with repeat lactic acid. 15. P.r.n. Tylenol. 16. SCDs for DVT prophylaxis. 17. Repeat labs in the morning. 18. Protonix for GI prophylaxis since the patient will be on Solu-Medrol. 19. Check lithium level. 20. Additional workup and consultants based on above. Unit #: [id number] #: [id number] Patient: NICOLA DÍAZ Dictated by Rita Parker M.D. NIDIA/luisa TD: 11/02/2016 21:11 JOB #: [id number] HISTORY AND PHYSICAL Page 1 of 1 X Rita Parker MD X HISTORY AND PHYSICAL
--- NOTE | ~2016-11-02 | DS ---
Unit #: [id number] #: [id number] Patient: NICOLA DÍAZ [id number] [place], [place] [address] [id number] MR#: [id number] NAME: NICOLA DÍAZ. ROOM: 341 Age: 51 Sex: M Admission Date: 11/02/2016 : 1965 Discharge Date: 11/05/2016 Attending Physician: Zion Talbot M.D. Primary Care Physician: Renee Tracey M.D. DISCHARGE SUMMARY DISCHARGE DIAGNOSES 1. Simple pneumonia. 2. Sepsis. 3. History of lung cancer, status post right upper lobe lobectomy, chemotherapy, and radiation. 4. Chronic obstructive pulmonary disease exacerbation. HOSPITAL COURSE The patient is a 51-year-old male who presented to [facility] emergency department secondary to fever. Apparently, he had been admitted at this facility from 10/22 to 10/25 secondary to pneumonia. He took his last dose of antibiotic and the day following had a fever of 102.7. As a result, he came to the emergency department and was admitted for pneumonia. Patient was started on vancomycin and Zosyn initially for coverage of MRSA and gram-negative organisms. Sputum culture was sent and ultimately has returned growing normal respiratory mala. Patient's hospital course was actually quite uncomplicated and at the time of discharge, the patient was satting in the 90s on room air and ambulating without difficulty. He has no cough and is afebrile. He has been seen by oncology during this stay and he should follow up with them as an outpatient. He is being discharged home now on six more days of oral Levaquin. DISCHARGE MEDICATIONS 1. Ventolin 2 puffs q.4 hours p.r.n. 2. Folic acid 1 mg daily. 3. Phenergan 25 mg p.o. q.4 hours p.r.n. 4. Levaquin 750 mg p.o. daily. 5. Hydrocodone/acetaminophen 10/325 one p.o. q.4 hours p.r.n. 6. Vitamin D 2000 units at bedtime. 7. Xanax 1 mg p.o. q.h.s. p.r.n. 8. SEROquel 500 mg p.o. at bedtime. 9. Vraylar 1.5 mg p.o. q.h.s. 10. Advair 250/50 one puff b.i.d. 11. [place] 600 mg p.o. b.i.d. 12. Perphenazine 2 mg p.o. daily. 13. Baclofen 10 mg p.o. t.i.d. p.r.n. 14. Prevacid 15 mg p.o. daily. 15. Modafinil 200 mg p.o. daily. FOLLOWUP Patient should follow up with Dr. Jang at his regularly scheduled Unit #: [id number] #: [id number] Patient: NICOLA DÍAZ Tiffanie appointment. Additionally, he should follow up with his primary care provider at the end of his antibiotic course. Dictated by... Adrián Lomeli/arian TD: 11/08/2016 08:42 JOB #: [id number] DISCHARGE SUMMARY Page 1 of 1 X Zion Talbot MD X DISCHARGE SUMMARY
--- NOTE | ~2016-11-02 | EKG ---
PATIENT: NICOLA DÍAZ UNIT #: [id number] Ventricular Rate: 110 BPM Atrial Rate: 110 BPM P-R Interval: 154 ms QRS Duration: 76 ms Q-T Interval: 342 ms QTC Calculation(Bezet): 462 ms P Sod[place] Daisy: 56 degrees Calculated R [place]: -9 degrees Calculated T Sod[place] Daisy: 57 degrees Diagnosis Line: Sinus tachycardia Diagnosis Line: Otherwise normal ECG Diagnosis Line: When compared with ECG of 22-OCT-2016 15:03, Diagnosis Line: No significant change was found Diagnosis Line: Confirmed by ANDREW LIZARRAGA MD ([id number]) on Diagnosis Line: 11/03/2016 2:59:49 PM INTERPRETING MD: LISETTE
--- NOTE | ~2016-11-02 | CT55 ---
[facility] A Service of [facility] & [facility] RADIOLOGY TEXT RESULTS PATIENT: NICOLA DÍAZ LOCATION: [facility] 341-01 : [birth year] UNIT #: [id number] AGE: [address]: Zion Talbot MD SEX: M ORDER DR: [id number] [facility] [address] [facility]. [place], [place] [address] [id number] I MR#: [id number] Acc #: [id number] NAME: NICOLA DÍAZ : 1965 SEX: M STUDY DATE/TIME: 11/05/2016 9:54 UNIT: A [facility] ROOM: [facility] STUDY DESCRIPTION: CT Chest W Con Attending Physician: Zion Talbot M.D. Ordering Physician: Javan Jang M.D., Ph.D. Primary Care Physician: Renee Tracey M.D. MEDICAL IMAGING REPORT This report is preliminary unless electronic signature is present EXAM CT chest with contrast. INDICATION Fever, cough and congestion since November 02, 2016. Patient does have a history of lung cancer. TECHNIQUE Axial CT images were obtained from the thoracic inlet through the dome of the diaphragm following administration of intravenous contrast material. FINDINGS Since prior examination from September 2016, the patient has developed multifocal infiltrates throughout the right lung, particularly within the right lower lobe. There are postsurgical changes of right upper lobectomy. On the left, there is a 1.1-cm ground-glass nodule that has actually diminished in size when compared to prior exam; it is favored to be benign. I do not see any new infiltrates on the left. The thyroid gland and trachea appear within normal limits. There is a small hiatal hernia. Trace pericardial fluid is again noted. Patient has a right internal jugular vein Medi-Port which extends into the right atrium. There is a separate origin of the left vertebral artery from the aortic arch, which is normal a anatomic variant. Mediastinal lymph nodes do not appear pathologically enlarged. Patient's CT of the abdomen and pelvis will be dictated separately. Review of bone windows demonstrates multiple old right-sided rib fractures. No aggressive osseous abnormalities are seen. IMPRESSION 1. Since prior exam from September 2016, patient has developed patchy multifocal infiltrates throughout the right lung. These are favored STS. [facility] A Service of [facility] & [facility] RADIOLOGY TEXT RESULTS PATIENT: NICOLA DÍAZ LOCATION: [facility] 341-01 : [birth year] UNIT #: [id number] AGE: [address]: Zion Talbot MD SEX: M ORDER DR: to be infectious or inflammatory in nature, but given history of lung cancer, I would suggest short-term CT followup to document complete resolution. There is also a left upper lobe ground-glass infiltrate which has diminished in size over time and is also favored to be benign, but again attention to it on a followup study is suggested. 2. Postsurgical changes seen within the right hemithorax. 3. Patient's CT of the abdomen and pelvis will be dictated separately. 4. Please see the body of the report for any other additional incidental findings. Dictated by... Sophia Rivera M.D. THIS IS AN ELECTRONICALLY VERIFIED REPORT Sophia Rivera M.D. at 11/06/2016 5:02 PM DENITA/rosario TD: 11/05/2016 17:45 JOB #: [id number] MEDICAL IMAGING REPORT Page 1 of 1 COPY
--- NOTE | ~2016-11-02 | CO ---
Unit #: [id number] #: [id number] Patient: NICOLA DÍAZ [id number] [address] [address] [id number] I MR#: [id number] NAME: NICOLA DÍAZ ROOM: 341 Age: 51 Sex: M Admission Date: 11/02/2016 : 1965 Attending Physician: Zion Talbot M.D. Primary Care Physician: Renee Tracey M.D. Consultation Date: 11/05/2016 CONSULTATION REPORT The patient was admitted to Dr. Rita Parker. REASON FOR CONSULTATION Recurrent pneumonia. HISTORY OF PRESENT ILLNESS This is a 51-year-old male with an extensive past medical history including cancers and COPD. Patient was recently in the hospital from October 12 to October 25 with right lower lobe pneumonia. His workup was negative for blood cultures and sputum culture, but he was discharged home on Omnicef. Patient did well until yesterday when he took his last dose of antibiotics and then he awoken to a temperature of 102.7. Patient reports he continues to have cough with some occasional pain and weak. Since admission, the patient has not had any documented fever. He has been started on steroids and his white blood cell count was elevated but now it has normalized. Patient has been covered with vancomycin and Zosyn as well as some intermittent tobramycin which has been stopped. Infectious disease was asked to see patient for recurrent pneumonia. PAST MEDICAL HISTORY 1. Recent treatment for right lower lobe pneumonia. 2. Nonsmall cell lung cancer, status post right upper lobe lobectomy, who completed radiation six weeks ago and chemotherapy three weeks ago. 3. Anemia. 4. COPD, not on home oxygen. 5. CHF. 6. Colon cancer with polypectomy and chemotherapy in 2012. 7. Lopez's esophagus. 8. Hiatal hernia. 9. Posttraumatic stress disorder. 10. Fibromyalgia. 11. Depression. 12. Bipolar disorder. 13. Questionable seizures; however, he is not on any antiseizure medications. PAST SURGICAL HISTORY 1. Polypectomy. 2. Colonoscopy. 3. Right upper lobe lobectomy. 4. Port placement. 5. Appendectomy. 6. Cholecystectomy. Unit #: [id number] #: [id number] Patient: BRE,NICOLA L ALLERGIES Codeine, Zolpidem, risperidone, and trazodone. MEDICATIONS The patient, as previously stated, is on vancomycin, Zosyn, and tobramycin; has since been stopped. For other medications, please refer to patient's MAR. SOCIAL HISTORY Patient has past tobacco abuse but none recently. No alcohol or IV drug use. REVIEW OF SYSTEMS Patient reports some fever at home, greater than 102 degrees Fahrenheit without any fever since admission. He reports some productive and positive cough with some discomfort in his chest. He denies any change in his GI status. He states he has some chronic diarrhea that has not changed since his gallbladder removal. The patient denies any nonhealing wounds and denies any pain at his port. PHYSICAL EXAMINATION VITAL SIGNS: Temperature 97.6, pulse 100, blood pressure 166/93, respiratory rate 18. GENERAL: This is a no apparent distress male who is resting in the bed comfortably and easily, sits up when asked. HEENT: His pupils are equal. NECK: Supple. CARDIOVASCULAR: S1, S2 with tachycardia. PULMONARY: Clear to auscultation bilaterally and in the bases with no wheezes or rhonchi noted. ABDOMEN: Positive bowel sounds. Soft and nontender. EXTREMITIES: No clubbing, cyanosis, or edema. He has a port in the right upper chest without any evidence of erythema, drainage, or cellulitis and it is accessed. DIAGNOSTIC STUDIES LABORATORY: BUN 9, creatinine 0.9, sodium 138, potassium 3.9, chloride 107, CO2 of 24. Bilirubin 0.1, AST 31, ALT 41. Procalcitonin on admission was 1.32. White blood cell count 13.1 which is improved from admission of 22.7, hemoglobin 8.4, hematocrit 26.6, platelets 344,000. CD4 count and IgG level are currently pending. Legionella and strep pneumo antigens are negative. HIV is negative. MICROBIOLOGY: Sputum and blood cultures are currently negative to date. Previous admission blood culture and sputum results were negative to date. IMPRESSION This is a 51-year-old male with history of recent lung cancer, status post lobectomy who completed radiation and chemotherapy greater than three weeks ago. Patient now has recently been admitted for right lower lobe pneumonia, was home on p.o. Omnicef as his cultures were negative. Patient did well until the day of stopping his antibiotics. The next day, he awoke with fever of greater than 102 degrees Fahrenheit. Patient continues to have cough but has no documented fever this admission. Chest x-ray did not improve. Unclear if patient has recurrent pneumonia versus partially treated or nonresolving pneumonia in the right lower lobe in an immunocompromised host. Patient appears nontoxic and he has had no fevers Unit #: [id number] #: [id number] Patient: NICOLA DÍAZ since admission, and his leukocytosis may be related to a steroid use. At this time, empiric antibiotic coverage with vancomycin and Zosyn is appropriate until CT scan of the chest, abdomen, and pelvis have returned. Patient may require workup for a possibly opportunistic infection pending his culture results and patient's clinical response to antibiotic therapy. Patient's HIV is negative but IgG is currently pending. Will continue to follow along with hematology. Will recheck a procalcitonin level. Will ask the nursing staff to call with any fever greater than 101.4 degrees Fahrenheit and will check a CBC in the a.m. This case will be discussed in detail with Dr. Tommie Medina. Thank you for allowing us to participate in the care of this patient. Further recommendations to follow pending patient's clinical course. Dictated by... Katerina Dubois.P.RKyraN. for Tommie Medina M.D. MARKEL/addi TD: 11/05/2016 10:25 JOB #: [id number] CONSULTATION REPORT Page 1 of 1 X X CONSULTATION REPORT
--- NOTE | ~2016-11-02 | CR72 ---
[facility] A Service of [facility] & [facility] RADIOLOGY TEXT RESULTS PATIENT: NICOLA DÍAZ LOCATION: [facility] 341- : [birth year] UNIT #: [id number] AGE: [address]: Rita Parker MD SEX: M ORDER DR: [id number] [facility] [address] [facility] [place] [facility]. [place], [place] [address] [id number] I MR#: [id number] Acc #: [id number] NAME: NICOLA DÍAZ. : 1965 SEX: M STUDY DATE/TIME: 11/02/2016 15:47 [facility] ROOM: [facility] STUDY DESCRIPTION: CR Chest Single View Portable Attending Physician: Rita Parker M.D. Ordering Physician: Lyla Campos M.D. Primary Care Physician: Renee Tracey M.D. MEDICAL IMAGING REPORT This report is preliminary unless electronic signature is present EXAM Portable chest 11/02 COMPARISON 10/22. HISTORY Fever. Cough. Congestion. Shortness of breath. Symptoms began 11/02. FINDINGS AP view is obtained. The cardiac size is stable. Left lung is clear. Chronic infiltrate in the right lung is unchanged. Right-sided chest port remains in place. CONCLUSION Right-sided pulmonary infiltrates. No acute process seen. Dictated by... Dell Palma M.D. THIS IS AN ELECTRONICALLY VERIFIED REPORT Dell Palma M.D. at 11/03/2016 9:32 AM MARTIN/laquita TD: 11/02/2016 22:30 JOB #: [id number] MEDICAL IMAGING REPORT Page 1 of 1 COPY
--- NOTE | ~2016-11-02 | CT2 ---
[facility] A Service of [facility] RADIOLOGY TEXT RESULTS PATIENT: NICOLA DÍAZ LOCATION: [facility] 341 : [birth year] UNIT #: [id number] AGE: [address]: Zion Talbot MD SEX: M ORDER DR: [id number] [facility]. [place], [place] [address] [id number] I MR#: [id number] Acc #: [id number] NAME: NICOLA DÍAZ : 1965 SEX: M STUDY DATE/TIME: 11/05/2016 9:54 UNIT: C3A PCU ROOM: 341 STUDY DESCRIPTION: CT Abd and Pelv W Cont Attending Physician: Zion Talbot M.D. Ordering Physician: Javan Jang M.D., Ph.D. Primary Care Physician: Renee Tracey M.D. MEDICAL IMAGING REPORT This report is preliminary unless electronic signature is present EXAM CT of the abdomen and pelvis with contrast INDICATIONS Nausea and vomiting since October 18, history of lung cancer. TECHNIQUE CT of the abdomen and pelvis was performed with IV contrast only. Coronal and sagittal reformatted images were obtained. This CT exam was performed with one or more of the following radiation dose reduction techniques: automatic exposure control, adjustment of mA and/or kV according to patient size, and iterative reconstruction. COMPARISON STUDIES Comparison is made with 10/22/2016 FINDINGS Please refer to separately dictated chest CT for findings above the diaphragm. The liver is unremarkable. Cholecystectomy. The spleen is unremarkable. The kidneys are unremarkable. The adrenal glands are unremarkable. Pancreas is unremarkable. No evidence for bowel obstruction. PELVIS: Small fat-containing inguinal hernia on the left. The colon is unremarkable. The appendix is surgically absent. There is no free fluid. The bone windows are unremarkable. IMPRESSION No acute findings. No evidence for bowel obstruction. Please refer to separately dictated CT of the chest for findings above the diaphragm. [facility] A Service of [facility] RADIOLOGY TEXT RESULTS PATIENT: NICOLA DÍAZ LOCATION: [facility] 341 : [birth year] UNIT #: [id number] AGE: [address]: Zion Talbot MD SEX: M ORDER DR: Dictated by... Jag Vee M.D. THIS IS AN ELECTRONICALLY VERIFIED REPORT Jag Vee M.D. at 11/06/2016 7:32 AM RODRICK/lidya TD: 11/05/2016 16:46 JOB #: [id number] MEDICAL IMAGING REPORT Page 1 of 1 COPY
[~2016-11-02 12:35] MED LIST changes: +ADVAIR 250-501 EAC1 PO; +ALBUTEROL17 GM INH; +ALPRAZOLAM1 MG PO; +D-20002000 UNIT PO; +FOLIC ACID1 MG PO; +HYDROCODON-ACE1 EAC5 PO; +LIORESAL10 MG PO; +LITHIUM PO; +MODAFINIL200 MG PO; +OMNICEF300 M1 PO; +PERPHENAZINE2 MG PO; +PHENERGAN PO; +PHENERGAN25 M1 DOB; +PREVACID 24HR15 MG PO; +PROAIR RESPICL90 MCG INH; +SEROQUEL PO; +VITAMIN D31000 UNIT PO; +VRAYLAR1.5 MG PO
[2016-11-02 15:29] LABS: BASOPHIL# 0.1 X10e3 (0-0.3); BASOPHIL% 0.3 % (0-2.5); DIFF IND YES; EOSINOPHIL# 0.2 X10e3 (0-0.7); HEMATOCRIT 33.5 % (38.0-50.0); HEMOGLOBIN 10.8 gm/dL (13.0-16.0); LYMPHOCYTE# 1.5 X10e3 (1.0-3.5); LYMPHOCYTE% 6.6 % (17.0-45.0); MEAN CELL VOLUME 86.1 FL (83-96); MEAN CORPUSCULAR HEMOGLOBIN 27.8 PG (28-34); MEAN CORPUSCULAR HGB CONC 32.3 g/dL (30-36); MEAN PLATELET VOLUME 7.1 FL (6.5-11.5); MONOCYTE# 1.1 X10e3 (0-1.0); MONOCYTE% 4.8 % (3.0-12.0); NEUTROPHIL# 19.8 X10e3 (1.5-7.1); NEUTROPHIL% 87.3 % (40-75); PLATELET COUNT 382 X10e3 (140-420); RED CELL DISTRIBUTION WIDTH 21.9 % (11.0-15.5); WHITE BLOOD COUNT 22.7 X10e3 (4.0-10.5)
[2016-11-02 15:36] LABS: PARTIAL THROMBOPLASTIN TIME 28.1 SECONDS (23.5-31.3); PROTHROMBIN TIME (PATIENT) 11.1 SECONDS (10.0-11.7)
[2016-11-02 16:02] LABS: ANISOCYTOSIS SL; PLATELET ESTIMATE NORMAL (NORMAL)
[2016-11-02 16:03] LABS: ALBUMIN SERUM 4.2 g/dL (3.5-5.0); BILIRUBIN, DIRECT 0.1 mg/dL (0.0-0.2); BILIRUBIN,INDIRECT 0.6 mg/dL (0.0-0.9); BILIRUBIN,TOTAL 0.7 mg/dL (0.2-2.0); CALCIUM SERUM 9.7 mg/dL (8.4-10.2); POIKILOCYTOSIS SL; POTASSIUM 3.8 mmol/L (3.5-5.1); PROTEIN TOTAL SERUM 8.5 g/dL (6.0-8.3); RBC NORMAL YES
[2016-11-02 17:49] LABS: POC - CKMB 1.5 ng/mL (0.0-7.9); POC - TROPONIN <0.05 ng/mL (<=0.05)
[2016-11-02 23:29] LABS: CK TOTAL 30 IU/L (36-174)
[2016-11-03 06:06] LABS: CK TOTAL 23 IU/L (36-174)
[2016-11-03 06:17] LABS: ALBUMIN SERUM 3.3 g/dL (3.5-5.0); BILIRUBIN,TOTAL 0.1 mg/dL (0.2-2.0); BUN/CREATININE RATIO 12.22; CALCIUM SERUM 8.9 mg/dL (8.4-10.2); CREATININE SERUM 0.9 mg/dL (0.6-1.4); GLOM FILT RATE Estimated 99.9 mL/min (>60); POTASSIUM 3.8 mmol/L (3.5-5.1)
[2016-11-03 06:32] LABS: BASOPHIL% 0.3 % (0-2.5); HEMATOCRIT 28.1 % (38.0-50.0); LYMPHOCYTE# 0.6 X10e3 (1.0-3.5); LYMPHOCYTE% 4.4 % (17.0-45.0); MEAN CORPUSCULAR HEMOGLOBIN 27.9 PG (28-34); MEAN CORPUSCULAR HGB CONC 32.1 g/dL (30-36); MEAN PLATELET VOLUME 7.5 FL (6.5-11.5); MONOCYTE# 0.4 X10e3 (0-1.0); MONOCYTE% 2.6 % (3.0-12.0); NEUTROPHIL# 13.6 X10e3 (1.5-7.1); NEUTROPHIL% 92.7 % (40-75); RED BLOOD COUNT 3.23 X10e (3.90-5.60); RED CELL DISTRIBUTION WIDTH 21.2 % (11.0-15.5); WHITE BLOOD COUNT 14.7 X10e3 (4.0-10.5)
[2016-11-03 06:54] LABS: DIFF IND NO; PLATELET COUNT 297 X10e3 (140-420)
[2016-11-03 13:24] LABS: LEGIONELLA AG URINE NEG (NEG)
[2016-11-04 06:14] LABS: HEMOGLOBIN 8.2 gm/dL (13.0-16.0); MEAN CELL VOLUME 87.6 FL (83-96); MEAN CORPUSCULAR HEMOGLOBIN 27.8 PG (28-34); MEAN CORPUSCULAR HGB CONC 31.7 g/dL (30-36); MEAN PLATELET VOLUME 7.6 FL (6.5-11.5); RED BLOOD COUNT 2.97 X10e (3.90-5.60); WHITE BLOOD COUNT 16.3 X10e3 (4.0-10.5)
[2016-11-04 06:31] LABS: CALCIUM SERUM 9.2 mg/dL (8.4-10.2); CREATININE SERUM 0.8 mg/dL (0.6-1.4); GLOM FILT RATE Estimated 104.9 mL/min (>60); POTASSIUM 4.1 mmol/L (3.5-5.1)
[2016-11-05 05:36] LABS: HEMATOCRIT 26.6 % (38.0-50.0); HEMOGLOBIN 8.4 gm/dL (13.0-16.0); MEAN CELL VOLUME 87.6 FL (83-96); MEAN CORPUSCULAR HEMOGLOBIN 27.8 PG (28-34); MEAN CORPUSCULAR HGB CONC 31.7 g/dL (30-36); MEAN PLATELET VOLUME 7.5 FL (6.5-11.5); RED BLOOD COUNT 3.04 X10e (3.90-5.60); RED CELL DISTRIBUTION WIDTH 21.3 % (11.0-15.5); WHITE BLOOD COUNT 13.1 X10e3 (4.0-10.5)
[2016-11-05 06:53] LABS: CALCIUM SERUM 9.2 mg/dL (8.4-10.2); CREATININE SERUM 0.9 mg/dL (0.6-1.4); GLOM FILT RATE Estimated 99.9 mL/min (>60); POTASSIUM 3.9 mmol/L (3.5-5.1)
[2016-11-05] MEDS ORDERED: LEVAQUIN PO (17:29)
[2016-11-06 19:06] LABS: CD4 % (PNL) 19 % (30-61)
== END 2016-11-05 18:27 | disposition home or self-care (01) | DRG 871 ==
LOC: CED 12:35 → CEDOF 18:10 → C3A PCU 18:10 → CEDOF 18:42 → CED 18:42 → C3A PCU 19:46 → CEDOF 19:46 → C3A PCU 11-04 06:47
PROVIDERS: Emergency Medicine; Family Medicine; Internal Medicine; Internal Medicine Hematology & Oncology
DX: A41.9 Sepsis, unspecified organism (principal); J18.9 Pneumonia, unspecified organism; E87.2 Acidosis; I50.9 Heart failure, unspecified; J44.0 Chronic obstructive pulmonary disease with (acute) lower respiratory infection; J44.1 Chronic obstructive pulmonary disease with (acute) exacerbation; Z85.118 Personal history of other malignant neoplasm of bronchus and lung; J22 Unspecified acute lower respiratory infection; K22.70 Barrett's esophagus without dysplasia; K44.9 Diaphragmatic hernia without obstruction or gangrene; F43.10 Post-traumatic stress disorder, unspecified; M79.7 Fibromyalgia; F32.9 Major depressive disorder, single episode, unspecified; Z90.49 Acquired absence of other specified parts of digestive tract; R00.0 Tachycardia, unspecified
CPT/HCPCS: 36415; 71010; 71260; 74177; 80048; 80053; 80076; 80178; 80200; 80202; 82308; 82550; 82553; 82784; 83605; 84484; 85025; 85027; 85610; 85730; 86361; 87040; 87070; 87205; 87449; 87806; 87899; 93005; 94640; 94760; 99285; J2543; J2930; J3260; J3370; Q9967

== ENCOUNTER 2016-11-26 14:38 | Inpatient (IN) | payer MEDICARE, OTHER ==
[~2016-11-26] VITALS: Ht 177.8 cm; Wt 98.3 kg
--- NOTE | ~2016-11-26 | CR72 ---
[facility] A Service of [facility] & [facility] RADIOLOGY TEXT RESULTS PATIENT: NICOLA DÍAZ LOCATION: [place] [address]- : [birth year] UNIT #: [id number] AGE: [address]: Didier Orozco MD SEX: M ORDER DR: [id number] [facility] [address] [facility] [place], [place] [address] [id number] I MR#: [id number] Acc #: [id number] NAME: NICOLA DÍAZ : 1965 SEX: M STUDY DATE/TIME: 11/29/2016 5:41 UNIT: [facility] ROOM: [facility] STUDY DESCRIPTION: CR Chest Single View Portable Attending Physician: Didier Orozco M.D. Ordering Physician: Didier Orozco M.D. Primary Care Physician: Renee Tracey M.D. MEDICAL IMAGING REPORT This report is preliminary unless electronic signature is present EXAM Portable chest INDICATION Cough and fever. PROCEDURE Frontal view chest. COMPARISON 11/26/2016. FINDINGS Heart size is stable. Ill-defined opacity in the right lung. No new dense consolidation or pneumothorax. IMPRESSION Slightly increased ill-defined opacity in the right lung could represent pneumonia. No new dense opacity. Dictated by... Al Maldonado M.D. THIS IS AN ELECTRONICALLY VERIFIED REPORT Al Maldonado M.D. at 11/29/2016 9:54 PM LUBA/dayron TD: 11/29/2016 12:33 JOB #: [id number] MEDICAL IMAGING REPORT Page 1 of 1 COPY
--- NOTE | ~2016-11-26 | CO ---
Unit #: [id number] #: [id number] Patient: NICOLA DÍAZ [id number] [address] [address] [id number] I MR#: [id number] NAME: NICOLA DÍAZ. ROOM: 562 Age: 51 Sex: M Admission Date: 11/26/2016 : 1965 Attending Physician: Didier Orozco M.D. Primary Care Physician: Renee Tracey M.D. Consultation Date: 11/27/2016 CONSULTATION REPORT REASON FOR CONSULTATION Recurrent pneumonia (third relapse). HISTORY OF PRESENT ILLNESS This is a 51-year-old male with a history of lung cancer status post right upper lobectomy. The patient was seen by our service on November 05, 2016 and was being worked up for pneumonia or opportunistic infection; however, he was discharged on the same day on oral Levaquin by the admitting service. The patient reports he initially did well; however, as soon as he completed his antibiotic therapy, he returned with fever and purulent sputum production, which is similar to his first episode of pneumonia. The patient is now admitted. He reports he had fever of greater than 101.5 degrees Fahrenheit at home. He had productive sputum and right pleuritic chest pain. The patient was admitted for healthcare-associated pneumonia, and infectious disease was asked to evaluate. The patient has been placed on vancomycin, Zosyn and tobramycin. He had a chest film done, a sputum culture, which is pending. A procalcitonin was elevated at 7; however, the patient does not appear significantly toxic during exam. PAST MEDICAL HISTORY Past medical history includes lung cancer, as previously stated, and COPD, right lower lobe pneumonia, anemia, CHF, colon cancer with polypectomy and chemotherapy in 2012, Lopez esophagus, hiatal hernia, posttraumatic stress disorder, fibromyalgia, depression, bipolar disorder and possible seizures; however, not taking any antiseizure medications. PAST SURGICAL HISTORY Past surgical history includes polypectomy and colonoscopy, right upper lobectomy, port placement, appendectomy, cholecystectomy. ALLERGIES Codeine, zolpidem, Risperidone and trazodone. MEDICATIONS The patient is on vancomycin, Zosyn and tobramycin. For other medications, please refer to the patient's MAR. Please note that the patient recently completed a 2-week course of Levaquin at home. SOCIAL HISTORY Past tobacco, none recently. No IV drug abuse or tobacco use. REVIEW OF SYSTEMS Negative except for as previously mentioned above. He denies any nausea, Unit #: [id number] #: [id number] Patient: NICOLA DÍAZ vomiting, diarrhea, pain with urination or nonhealing wounds. PHYSICAL EXAMINATION VITAL SIGNS: Temperature is 97.7, pulse 95, blood pressure 138/76 and respiratory rate is 18. The patient's T max this admission has been 99.5. DIAGNOSTIC STUDIES IMAGING: Chest x-ray has not been posted at this time. On 11/[address] scan of the chest did show patchy multifocal infiltrates in the lung. LABORATORY: BUN 7, creatinine 1, sodium 135, potassium 3.1, chloride 105, CO2 22, bilirubin 0.5, AST 46, ALT 65, lactic acid 1.1, procalcitonin 7.48. White blood cell count is 10.9, which is improved from 13.3 on admission. Hemoglobin 10, hematocrit 31.2, platelets 242. Last admission IgG level was 757, and a CD4 count was 135. Legionella and Streptococcus pneumoniae antigens were not collected last admission. HIV was nonreactive. Urinalysis not done this admission. MICROBIOLOGY DATA: Blood culture and sputum culture are currently pending. IMPRESSION This is a 51-year-old male with a history of COPD, as well as a right upper lobectomy secondary to secondary to lung cancer. The patient has not had any chemotherapy for approximately 6 weeks. The patient, since that time, has had 3 bouts of pneumonia. The first episode was treated with Omnicef. Once he completed treatment, he returned with fever approximately 48 hours later with productive sputum, cough and pleuritic chest pain. The second pneumonia, for which the patient was hospitalized but quickly discharged, he was treated with Levaquin for 2 weeks. His fever and cough subsided; however, 48 hours again after stopping antibiotic therapy, his fever and pleuritic chest pain and productive sputum quickly returned. The patient is now admitted. He again has right-sided pneumonia. At this time would recommend a followup CT scan to evaluate for progression or changes in the pneumonia. The patient will likely require a bronchoscopy secondary to being in an immunocompromised state and recurrent pneumonia without resolution with both Omnicef and Levaquin. Healthcare-associated pneumonia also needs to be addressed, as the patient has been recently in and out of the hospital and his immune system is compromised. Would like to cover the patient with vancomycin, Zosyn and azithromycin. Will check the patient's Streptococcus pneumoniae antigen secondary to significant pleuritic chest pain with cough. Will have the nursing staff call with any positive blood cultures and follow up on routine blood work. The patient's CD4 count is less than 200, and this will be addressed with Dr. Tommie Medina, who will also evaluate this patient. The patient does appear nontoxic during exam and does not appear significantly short of breath but has obvious pain with cough. Thank you for allowing us to participate in the care of this patient. Further recommendations to follow pending the patient's clinical course. Dictated by... Eduarda Barry A.P.R.N. for Tommie Medina M.D. Unit #: [id number] #: [id number] Patient: NICOLA DÍAZ Tiffanie JEAN BAPTISTE/chrissie TD: 11/27/2016 11:54 JOB #: [id number] CONSULTATION REPORT Page 1 of 1 X X CONSULTATION REPORT
--- NOTE | ~2016-11-26 | CO ---
Unit #: [id number] #: [id number] Patient: NICOLA DÍAZ [id number] [address] [address] [id number] I MR#: [id number] NAME: NICOLA DÍAZ. ROOM: 562 Age: 51 Sex: M Admission Date: 11/26/2016 : 1965 Attending Physician: Didier Orozco M.D. Primary Care Physician: Renee Tracey M.D. CONSULTATION REPORT CHIEF COMPLAINT Non-small cell lung cancer, pleomorphic, sarcomatoid carcinoma, right upper lobe resection, left-sided lung biopsy positive for non-small cell lung cancer, SBRT, completed four cycles of carbo/Taxol. Now has recurrent pneumonia and fever. HISTORY OF PRESENT ILLNESS This is a 51-year-old male who, in the past, had recurrent cancer twice, had resection and received (1) . At present there is no sign of disease. There is no record. It was done in [place]. We could not get the records. Recently he was hospitalized with chest pain, shortness of breath, dyspnea on exertion, hemoptysis. CT of chest showed a 6 x 7 x 3 cm right superior lobe/right paratracheal mass. Patient had bronchoscopy. Pathology positive for pleomorphic, sarcomatoid carcinoma. The patient also had a biopsy of the left lung; that was adenocarcinoma. Patient had right lower upper lobectomy on June 11, 2016. The size of the tumor was 6.1 x 5.4 x 3.5 cm. One of the lymph nodes positive. It is T2b, N1, M0, stage IIIA. On the left side of the lung there is adenocarcinoma, which is small. The case was discussed with tumor board. He received SBRT. Final pathology of the right side is pleomorphic sarcomatoid carcinoma. He has completed 4 cycles of Carbo/Taxol and, again, radiation of the left side, had nausea. He came to the hospital three times. He had a fever of almost 103, cough, decline in performance status. He is receiving 3 antibiotics. At present he is complaining of cough. The patient had a CT of the chest, abdomen and pelvis during October 2016. At present, no obvious sign of disease. REVIEW OF SYSTEMS CONSTITUTIONAL: No fever, no chills, no sweats, no weight loss. EYES: No visual symptoms. EARS, NOSE AND THROAT: There is no runny nose or sore throat or difficulty hearing. CARDIOVASCULAR: No chest pain. No shortness of breath. No palpitations. No orthopnea. No PND. RESPIRATORY: As mentioned above. GASTROINTESTINAL: No nausea, vomiting, diarrhea, constipation, hematochezia or melena. Unit #: [id number] #: [id number] Patient: NICOLA DÍAZ GENITOURINARY: No urinary frequency, hesitancy or urgency. No blood in the urine. MUSCULOSKELETAL: No muscle or joint pain. NEUROLOGIC: No headache. No numbness or tingling. No weakness. No seizure. PSYCHIATRIC: No anxiety, depression or mood disturbance. ENDOCRINE: No excessive urination or thirst. DERMATOLOGIC: No rash or change in the skin. ALLERGIC/IMMUNOLOGIC: No symptoms. HEMATOLOGIC/LYMPHATIC: Denies any symptoms. PAST MEDICAL HISTORY 1. Non-small cell lung cancer both sides; right side resected. 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 Left side adenocarcinoma. He received SBRT on the left side. He received 4 cycles of Carbo/Taxol (2) . No sign of disease. 2. PTSD. 3. Hiatal hernia. 4. Lopez esophagus. 5. Colon cancer, age of 28 and 38. Resection, chemo. No sign of disease. I do not have records. ALLERGIES He has allergies to multiple medications, including trazodone. SURGICAL HISTORY 1. Right upper lobectomy. 2. Cholecystectomy. 3. Appendectomy. FAMILY HISTORY Mother had breast cancer. Grandmother had breast cancer. Father had lung cancer. PHYSICAL EXAMINATION VITALS: At home his highest temperature was almost 103. Today, temperature is 97.7, pulse 95, respirations 18, O2 saturation on 2 liters 94%, blood pressure 138/76. HEENT: Moist mucosa. Pupils equally reactive to light. Extraocular muscles intact. Sclerae anicteric. No obvious bleeding from nasal mucosa or oral mucosa. Scalp normal. Hearing normal. NECK: No JVD. No lymphadenopathy. LYMPHATIC/HEMATOLOGIC: There is no palpable adenopathy in the neck, axilla or inguinal area. CARDIOVASCULAR: S1, S2. Regular rate and rhythm. No S3 or S4. RESPIRATORY: There are bilateral wheezes. ABDOMEN/GASTROINTESTINAL: Abdomen is soft, nontender, nondistended. No hepatosplenomegaly. EXTREMITIES: There is no clubbing, no cyanosis, no edema. No varicose veins. NEUROLOGICAL: Patient is alert, awake and oriented x3. Cranial nerves II-XII are intact. Sensory grossly intact. Motor is 4/5 in all four extremities. Gait is normal. Station is normal. Language is normal. Memory is normal. DTRs +2 in all four extremities. MUSCULOSKELETAL: No joint swelling. No bony tenderness. No muscle tenderness. SKIN: No petechiae, no rash, no ecchymosis. PSYCHIATRIC: No anxiety. No delusions or hallucinations. There is no Unit #: [id number] #: [id number] Patient: NICOLA DÍAZ agitation. Eye contact is normal. Affect is appropriate. There is no flight of ideas. DIAGNOSTIC STUDIES IMAGING STUDIES: Chest x-ray. There is no change. LABS: WBC 10.9, hemoglobin 10, platelets 242. Creatinine is 1, AST 46, ALT 65, alkaline phosphatase normal. ASSESSMENT AND PLAN This is a 51-year-old male who has the following active issues: 1. Non-small cell lung cancer. It is a unique situation. The tumor is pleomorphic, sarcomatoid carcinoma on the right side. It is stage IIIA on the right side. He had lobectomy and adjuvant chemotherapy. On the left side, it is adenocarcinoma. He received SBRT. He has completed 4 cycles of Carbo/Taxol. Based on imaging study during October 2016, he has no sign of disease. 2. Respiratory. Now, he has probably recurrent pneumonia. I will consult ID. I will consult the pulmonary team. 3. Tremor. Continue Xanax. 4. Constitutional. The patient has had a mild decline in performance status. He has been taking Provigil 200 mg. He wants me to increase to twice a day. He is going to see psychiatrist as an outpatient. 5. Psychiatric. The patient has multiple psych history. He has PTSD. He will follow up with them as an outpatient. Dictated by... Ko Jang M.D. Sveta TD: 11/27/2016 10:24 JOB #: [id number] CONSULTATION REPORT Page 1 of 1 X Ko Jang MD CONSULTATION REPORT
--- NOTE | ~2016-11-26 | EKG ---
PATIENT: NICOLA DÍAZ UNIT #: [id number] Ventricular Rate: 106 BPM Atrial Rate: 106 BPM P-R Interval: 150 ms QRS Duration: 82 ms Q-T Interval: 350 ms QTC Calculation(Bezet): 464 ms P Lasara: 59 degrees Calculated R Lasara: -11 degrees Calculated T Lasara: 54 degrees Diagnosis Line: Sinus tachycardia Diagnosis Line: Otherwise normal ECG Diagnosis Line: When compared with ECG of 02-NOV-2016 17:16, Diagnosis Line: No significant change was found Diagnosis Line: Confirmed by FENG MOHAMUD MD ([id number]) on Diagnosis Line: 11/27/2016 3:52:23 PM INTERPRETING MD: CADE JUNIOR
--- NOTE | ~2016-11-26 | HP ---
Unit #: [id number] #: [id number] Patient: NICOLA DÍAZ [id number] [address] [place], [place] [address] [id number] MR#: [id number] NAME: NICOLA DÍAZ ROOM: Age: 51 Sex: M Admission Date: 11/26/2016 : 1965 Attending Physician: Jose Elias Guzman M.D. Primary Care Physician: Renee Tracey M.D. HISTORY AND PHYSICAL CHIEF COMPLAINT Fever, vomiting. HISTORY OF PRESENT ILLNESS The patient is a 51-year-old male with past medical history of lung cancer, chronic anemia, COPD, CHF, colon cancer, Lopez esophagus, hiatal hernia, PTSD, fibromyalgia, depression, bipolar disorder, who presented to the emergency department for evaluation of the above. The patient was hospitalized at [facility] November 02-2016 for pneumonia and sepsis. He was discharged home on Levaquin which he completed as prescribed. He states that he never returned to baseline. He states that he felt "slightly better" but has had intermittent fever and chills. He also reports a persistently productive cough. He has had vomiting and diarrhea as well. He states that he has vomited six times within the past 24 hours. He has also had loose stool but states that he has IBS and the loose stool is not any worse than usual. In the emergency department initial pulse and blood pressure were 121 and 155/97 respectively, oxygen saturation 100% on room air, temperature 99.5. Chest x-ray showed persistent patchy right basilar opacity. Laboratory notable for white blood cell count of 13.3. Initial lactic acid is 1.8. He was given Zosyn, vancomycin, tobramycin in the emergency department as well as one liter of normal saline. He is being admitted to [facility] for evaluation and further treatment. PAST MEDICAL HISTORY 1. Admission to [facility] November 02-2016 for pneumonia and sepsis. He was discharged home on Levaquin which he completed as prescribed. 2. Non-small cell lung cancer, pleomorphic, sarcomatoid carcinoma of the right upper lobe status post right upper lobectomy. 3. The patient's last radiation treatment was in August of 2016. He also received chemotherapy. The last dose was over a month ago. He is followed by Dr. Jang. 4. Chronic anemia. 5. COPD, not on home oxygen. The patient has seen Dr. Doyle in the past. 6. Congestive heart failure with unknown ejection fraction. 7. Colon cancer, status post polypectomy and chemotherapy. His last chemotherapy for colon cancer was in 2012. 8. Lopze esophagus. 9. Hiatal hernia. Unit #: [id number] #: [id number] Patient: NICOLA DÍAZ 10. PTSD. 11. Fibromyalgia. 12. Depression. 13. Bipolar disorder. 14. History of possible seizure not on antiepileptic medication. 15. IBS. PAST SURGICAL HISTORY 1. Polypectomy. 2. Colonoscopy. 3. Right upper lobectomy. 4. Port placement. 5. Appendectomy. 6. Cholecystectomy. SOCIAL HISTORY The patient has a 30 pack-year smoking history. He quit smoking. There is no alcohol or illicit drug use. FAMILY HISTORY Family history is notable for both parents having COPD. ALLERGIES Codeine, zolpidem, Risperdal, trazodone. HOME MEDICATIONS 1. Vitamin D3 2000 units daily. 2. Prevacid 15 mg daily. 3. Modafinil 200 mg daily. 4. Alprazolam 1 mg q.8 h. 5. Baclofen 10 mg t.i.d. 6. Seroquel 500 mg q.h.s. 7. Perphenazine 2 mg daily. 8. Advair 250/50 inhaled b.i.d. 9. Horton 600 mg b.i.d. 10. Vraylar 1.5 mg q.h.s. 11. Cholecalciferol 2000 units q.h.s. 12. Hydrocodone and acetaminophen 10/325 q.6 h. p.r.n. 13. Phenergan 25 mg q.4 h. p.r.n. 14. Folic acid 1 mg daily. 15. Albuterol two puffs q.4 h. p.r.n. REVIEW OF SYSTEMS A complete review of systems is negative except as indicated in the HPI. DIAGNOSTIC STUDIES IMAGING: Chest x-ray shows persistent right basilar opacity. LABORATORY: Complete blood count notable for white blood cell count of 13.3, hemoglobin and hematocrit 10.5 and 32.5 respectively, lactic acid1 1.8. Comprehensive metabolic panel notable for glucose of 112, AST and ALT are 54 and 72 respectively, amylase and lipase are normal, INR is 1. PHYSICAL EXAMINATION VITAL SIGNS: Temperature is 99.5. Pulse 121. Respirations 16. Blood pressure 155/97. Oxygen saturation 100% on room air. GENERAL: The patient is a male who is awake and alert, in no acute distress. Unit #: [id number] #: [id number] Patient: NICOLA DÍAZ HEENT: The head is atraumatic. Mucous membranes are dry. NECK: Neck is supple. Trachea is midline. CARDIOVASCULAR: Regular rate and rhythm. LUNGS: Demonstrate a few scattered rhonchi. Breathing is not labored. ABDOMEN: Abdomen is soft, nontender, with bowel sounds present in all four quadrants. EXTREMITIES: Nontender with no pedal edema. NEUROLOGIC: The patient is awake and alert. He follows commands. PSYCHIATRIC: Mood and affect are normal. The patient is cooperative. SKIN: Skin of examined areas is warm and dry. ASSESSMENT The patient is a 51-year-old male with: 1. Healthcare-associated pneumonia. Chest x-ray shows persistent right basilar opacity. The patient received vancomycin, Zosyn and tobramycin in the emergency department. 2. Sepsis with initial lactic acid of 1.8. 3. Lung cancer, non-small cell, pleomorphic, sarcomatoid, followed by Dr. Jang, status post lobectomy, chemotherapy and radiation. 4. Chronic obstructive pulmonary disease. 5. Congestive heart failure with unknown ejection fraction. 6. History of colon cancer. 7. Lopez esophagus. 8. Hiatal hernia. 9. Post traumatic stress disorder. 10. Fibromyalgia. 11. Depression. 12. Bipolar disorder. 13. Former smoker. 14. Transaminitis. The patient's AST has previously been normal, ALT has been as high as 59 on October 25, 2016. The patient is on hydrocodone and acetaminophen which could be contributing. PLAN 1. Admit to intermediate level. 2. Regular diet as tolerated. 3. Normal saline at 75 mL an hour. 4. Blood cultures x2. 5. Sputum culture and sensitivity. 6. Supplemental oxygen. 7. Check procalcitonin level. 8. Streptococcal and Legionella urine antigens. 9. DuoNeb q.4 h. 10. Vancomycin IV, tobramycin IV, Zosyn IV for healthcare-associated pneumonia pending further workup. 11. Sepsis protocol with repeat lactic acid. 12. Check EKG and cardiac enzymes. 13. Consult Dr. Jang regarding lung cancer. 14. Repeat labs in the morning. 15. SCDs for DVT prophylaxis. 16. Additional workup and consultants based on above. Dictated by Rita Parker M.D. Unit #: [id number] #: [id number] Patient: NICOLA DÍAZ/elisa TD: 11/26/2016 18:58 JOB #: [id number] HISTORY AND PHYSICAL Page 1 of 1 X Rita Parker MD X HISTORY AND PHYSICAL
--- NOTE | ~2016-11-26 | DS ---
Unit #: [id number] #: [id number] Patient: NICOLA PETE [id number] [address] [address] [id number] I MR#: [id number] NAME: NICOLA PETE. ROOM: 562 Age: 51 Sex: M Admission Date: 11/26/2016 : 1965 Discharge Date: 11/30/2016 Attending Physician: Didier Orozco M.D. Primary Care Physician: Renee Tracey M.D. DISCHARGE SUMMARY PRIMARY DIAGNOSIS Recurrent pneumonia, possible Staphylococcus aureus, possible gram negative dain. SECONDARY DIAGNOSES 1. Non-small cell lung cancer. 2. Chronic obstructive pulmonary disease. 3. Anemia. 4. Chronic diastolic heart failure with ejection fraction of 60-65%. 5. Chronic fatigue syndrome. 6. Bipolar disorder with psychosis. 7. Posttraumatic stress disorder. 8. Fibromyalgia. 9. Irritable bowel syndrome. 10. Hypokalemia. CONSULTANTS Included Dr. Hernández with Pulmonology and Dr. Jang with Oncology. HOSPITAL COURSE Mr. Nicola Pete is a 51-year-old, male, who recently completed chemotherapy and radiation in early October for his non-small cell lung cancer. He has had recurrent admissions for pneumonia since that time. During this admission, he had an echocardiogram as well as CT scan of the chest as well as bronchoscopy. Blood cultures and bronch cultures were unrevealing for a causative organism. The patient showed significant clinical improvement on vancomycin and Zosyn. He is being discharged on an additional 10 days of Omnicef and Zyvox. The importance of following up with Dr. Hernández in [address] scan was stressed to the patient. It is possible he may need a repeat bronch with biopsy if the imaging is not improving at that time. Cytology did show a few atypical cells and some fungal elements, some budding yeast, but at this time is not felt to need an antifungal. He will need terminal superintendent follow up on his cultures to make sure that no unusual fungus grows out such as blastomycosis or histomycosis. The patient does still have a Port-A-Cath in place, but at this time has negative blood cultures and his port is not believed to be the cause of his fevers at this time. The patient did have vomiting when he was febrile, but he was not felt to have any primary gastroenterology disease. It was felt that his vomiting Unit #: [id number] #: [id number] Patient: NICOLA PETE was secondary to his pneumonia, fever and cough. DISCHARGE DISPOSITION To home. DISCHARGE STATUS Stable. DISCHARGE ACTIVITY Ad chai. DISCHARGE DIET 2000 mg sodium heart healthy diet due to his history of diastolic heart failure. DISCHARGE FOLLOWUP With Dr. Hernádnez in 4 weeks. He can follow up with his PCP and his regular oncologist as per the regular schedule. DISCHARGE MEDICATIONS New medications include: 1. Potassium chloride 20 mEq p.o. b.i.d. x7 days. 2. Omnicef 300 mg p.o. b.i.d. x10 days. 3. Zyvox 600 mg p.o. b.i.d. x10 days. 4. Tessalon Perles 200 mg p.o. t.i.d. for 10-30 days. We will continue all of his previous home medications that include: 1. Ventolin 2 puffs q.4 hours p.r.n. shortness of breath. 2. Advair 250/50 one inhalation b.i.d. 3. Phenergan 25 mg p.o. q.4 hours p.r.n. nausea. 4. [place] carbonate 600 mg p.o. b.i.d. 5. Perphenazine 2 mg p.o. daily. 6. Seroquel 500 mg p.o. at bedtime. 7. Alprazolam 1 mg p.o. q.8 hours. Actually, he takes one tab in the morning and two tablets at bedtime. 8. Modafinil 200 mg p.o. daily. 9. Lortab 10/325 one tablet p.o. q.6 hours p.r.n. pain. 10. Prevacid 15 mg p.o. daily. 11. Baclofen 10 mg, he takes one in the morning and two at bedtime. 12. Folic acid 1 mg p.o. daily. 13. Vitamin D3 2000 units p.o. daily. 14. Vraylar 1.5 mg p.o. at bedtime. Dictated by... Didier Orozco M.D. JOSIAH/arnol TD: 12/03/2016 01:52 JOB #: [id number] Unit #: [id number] #: [id number] Patient: NICOLA PETE DISCHARGE SUMMARY Page 1 of 1 X Didier Orozco MD DISCHARGE SUMMARY
--- NOTE | ~2016-11-26 | CR63 ---
[facility] A Service of [facility] & [facility] RADIOLOGY TEXT RESULTS PATIENT: NICOLA DÍAZ LOCATION: [facility] 562-01 : [birth year] UNIT #: [id number] AGE: [address]: Didier Orozco MD SEX: M ORDER DR: [id number] [facility] [address] [place], [place] [address] [id number] I MR#: [id number] Acc #: [id number] NAME: NICOLA DÍAZ. : 1965 SEX: M STUDY DATE/TIME: 11/26/2016 16:02 UNIT: [facility] ROOM: [facility] STUDY DESCRIPTION: CR Chest 2 View Attending Physician: Didier Orozco M.D. Ordering Physician: Jose Elias Guzman M.D. Primary Care Physician: Renee Tracey M.D. MEDICAL IMAGING REPORT This report is preliminary unless electronic signature is present EXAM 2-view chest 11/26/2016 HISTORY 51-year-old male with cough, congestion, and fever for 1-1/2 months. Emphysema. COMPARISON Chest 11/02/2016 FINDINGS 2 views of the chest demonstrate minimal right basilar opacities, similar to prior examination. Left lung is clear. No pleural effusion or pneumothorax. Heart size and mediastinum are stable. Pulmonary vasculature unremarkable. Right-sided Port-A-Cath. IMPRESSION Minimal patchy right basilar opacities, similar to prior examination from 11/02/2016. Dictated by... Mumtaz Hilton M.D. THIS IS AN ELECTRONICALLY VERIFIED REPORT Mumtaz Hilton M.D. at 11/27/2016 2:14 PM EVIN/rosario TD: 11/27/2016 11:18 JOB #: [id number] MEDICAL IMAGING REPORT Page 1 of 1 COPY
--- NOTE | ~2016-11-26 | CO ---
Unit #: [id number] #: [id number] Patient: NICOLA DÍAZ [id number] [address] [address] [id number] I MR#: [id number] NAME: NICOLA DÍAZ ROOM: 562 Age: 51 Sex: M Admission Date: 11/26/2016 : 1965 Attending Physician: Didier Orozco M.D. Primary Care Physician: Renee Tracey M.D. Consultation Date: 11/27/2016 CONSULTATION REPORT REASON FOR CONSULT Pneumonia. CHIEF COMPLAINT Fever, vomiting, and shortness of breath. HISTORY OF PRESENT ILLNESS This is a very pleasant 51-year-old male with a past medical history significant for lung cancer, chronic anemia, COPD, congestive heart failure, colon cancer, and Lopez esophagus, who presented to the emergency room for evaluation of the above. Patient stated that this is the third time for him in the hospital over the last month for similar presentation, most recently was in October when he was admitted for three days and then discharged home on Levaquin. Patient stated that he did not feel ready at that time even though he was off oxygen and he was able to ambulate fine. Patient stated that for the last couple of days he was spiking fever of 100 range. He was coughing with sometimes mucus production. Also, patient had nausea and vomiting but no diarrhea. Patient lives with his partner at home and last chemotherapy he had was at the beginning of October 2016. He was told by Dr. Jang that his cancer is cured at this point. PAST MEDICAL HISTORY 1. Recurrent pneumonia. 2. Nonsmall cell lung cancer. 3. Chronic anemia. 4. Chronic obstructive pulmonary disease. 5. Congestive heart failure. 6. History of colon cancer. 7. Lopez esophagus. 8. Posttraumatic stress disorder. 9. Fibromyalgia. 10. Depression. 11. Bipolar disorder. 12. Irritable bowel syndrome. PAST SURGICAL HISTORY 1. Polypectomy. 2. Colonoscopy. 3. Right upper lobectomy. 4. Port placement. 5. Appendectomy. 6. Cholecystectomy. Unit #: [id number] #: [id number] Patient: NICOLA DÍAZ SOCIAL HISTORY Patient smoked for 30 years but quit in 2006. No history of alcohol or drug abuse. He has a partner and they live together. FAMILY HISTORY Chronic obstructive pulmonary disease and hypertension. ALLERGIES Codeine, zolpidem, Risperdal, and trazodone. HOME MEDICATIONS 1. Vitamin D. 2. Prevacid. 3. Modafinil. 4. Xanax. 5. Advair. 6. Zarephath. 7. Folic acid. REVIEW OF SYSTEMS A 12-point review of systems was obtained and was negative except for what was mentioned in the History of Present Illness. PHYSICAL EXAMINATION GENERAL: Patient is not in acute distress. VITAL SIGNS: Blood pressure is 116/62, respiratory rate 18, and O2 saturation 98% on room air. HEENT: Atraumatic, normocephalic. PERRLA. EOMI. NECK: Supple. No JVD. No lymphadenopathy. CHEST: Bilateral fine rhonchi at the bases. HEART: S1 and S2. No murmur, gallops, or rubs. ABDOMEN: Soft, nontender. Bowel sounds positive. No hepatosplenomegaly. EXTREMITIES: No edema or cyanosis. SKIN: No rashes. CENTRAL NERVOUS SYSTEM: Awake, alert, oriented x3. No focal motor/sensory deficits. DIAGNOSTIC STUDIES LABORATORY: Creatinine 1, potassium 3.1, AST 46, and ALT 65. White blood count 10.9 and hemoglobin 10. IMAGING: Chest x-ray is reviewed and consistent with right-sided infiltrate concerning for pneumonia. ASSESSMENT 1. Healthcare-associated pneumonia, likely gram-negative/MRSA. 2. History of nonsmall cell cancer. 3. Presumed chronic obstructive pulmonary disease. 4. Chronic anemia. 5. Fibromyalgia. 6. Congestive heart failure. 7. Colon cancer. PLAN 1. Will continue current broad spectrum antibiotics pending culture. 2. Bronchodilator and mucolytics. 3. Antitussive. 4. Will schedule for bronchoscopy as this is his third pneumonia in the Unit #: [id number] #: [id number] Patient: NICOLA DÍAZ last month with no complete resolution. 5. Incentive spirometry and out of bed to chair with early ambulation. 6. DVT prophylaxis. I would like to thank Dr. Orozco for allowing me to be part of this patient's care. Dictated by... Adrián Dawn TD: 11/27/2016 21:51 JOB #: [id number] CONSULTATION REPORT Page 1 of 1 X RACHELLE NORIEGA MD CONSULTATION REPORT
--- NOTE | ~2016-11-26 | CT57 ---
[facility] A Service of [facility] RADIOLOGY TEXT RESULTS PATIENT: NICOLA DÍAZ LOCATION: [facility] 562-01 : [birth year] UNIT #: [id number] AGE: [address]: Didier Orozco MD SEX: M ORDER DR: [id number] [facility] [address] [facility] [place], [place] [address] [id number] I MR#: [id number] Acc #: [id number] NAME: NICOLA DÍAZ : 1965 SEX: M STUDY DATE/TIME: 11/27/2016 13:24 UNIT: [facility] ROOM: [facility] STUDY DESCRIPTION: CT Chest Wo Cont Attending Physician: Didier Orozco M.D. Ordering Physician: Didier Orozco M.D. Primary Care Physician: Renee Tracey M.D. MEDICAL IMAGING REPORT This report is preliminary unless electronic signature is present EXAM CT chest without contrast HISTORY Shortness of air since yesterday. Recent pneumonia. FINDINGS CT chest without contrast is compared to CT chest 11/05/2016. This CT exam was performed with one or more of the following radiation dose reduction techniques: Automatic exposure control, adjustment of mA and/or kV according to patient size, and iterative reconstruction. There are postop changes of right upper lobectomy, with stable curvilinear calcification extending from the posterior right upper chest wall to the superior right hilum. Moderate patchy infiltrate in the central and inferior right lower lobe has increased slightly compared to 11/05/2016, suggesting progressive pneumonia. There is a stable small, ill-defined patchy density in the anterior left upper lobe is stable. No new nodules or infiltrates or effusions in the remainder of the chest. The remainder of the chest is stable. Small pericardial effusion measures up to approximately 1 cm in thickness along the right anterior lower heart border. IMPRESSION 1. Progressive moderate infiltrate in the right lower lobe compared to CT 11/05/2016. This is predominantly centered in the mid and inferior right lower lobe. This is nonspecific but could be secondary to progressive pneumonia. 2. Postop changes of right upper lobectomy. 3. Stable small, ill-defined patchy density in the anterior left upper lobe. 4. Stable small pericardial effusion measuring close to 1 cm in thickness. [facility]. [facility] A Service of [facility] RADIOLOGY TEXT RESULTS PATIENT: NICOLA DÍAZ LOCATION: [facility] 562-01 : [birth year] UNIT #: [id number] AGE: [address]: Didier Orozco MD SEX: M ORDER DR: Dictated by... Darron Manzano M.D. THIS IS AN ELECTRONICALLY VERIFIED REPORT Darron Manzano M.D. at 11/28/2016 11:30 PM DFL/fiordaliza TD: 11/28/2016 02:34 JOB #: [id number] MEDICAL IMAGING REPORT Page 1 of 1 COPY
--- NOTE | ~2016-11-26 | OR ---
Unit #: [id number] #: [id number] Patient: NICOLA DÍAZ [id number] [address] [place], [place] [address] [id number] I MR#: [id number] NAME: NICOLA DÍAZ ROOM: 562 Date of Procedure: 11/28/2016 Admission Date: 11/26/2016 Surgeon: Rachelle Hernández M.D. : 1965 Attending Physician: Didier Orozco M.D. Primary Care Physician: Renee Tracey M.D. PROCEDURE OPERATIVE NOTE PROCEDURE PERFORMED Diagnostic bronchoscopy with bronchoalveolar lavage. INDICATION FOR PROCEDURE Recurrent pneumonia and lung malignancy. POSTOPERATIVE FINDINGS 1. Thick mucus secretions at the level of the valentín and right lower lobe which was aspirated and lavaged. 2. Postop finding related to right upper lobe lobectomy. No signs of active cancer. PREMEDICATIONS 1. Versed 4 mg IV. 2. Fentanyl 100 mcg IV. DESCRIPTION OF PROCEDURE An informed consent was obtained from the patient after explaining the benefit and risk of this procedure. Patient was prepped and positioned in a proper way, then the bronchoscope was advanced through the oral cavity. At the level of the vocal cords, 2% lidocaine was instilled, then the bronchoscope was passed through the vocal cord into the valentín and some thick mucus secretions was noted at the level of the valentín which were aspirated, then lidocaine was instilled and the bronchoscope was advanced into the right main bronchus and the right upper lobe, right lower lobe, and right middle lobe were examined. However, there is no right upper lobe noted due to history of lobectomy. No active cancer cells were noted also. Washing and lavage was obtained from the right lower lobe which will be sent for microbiology and cytology. The bronchoscope was retracted and then re-advanced into the left main bronchus and left upper lobe, lingula and left lower lobe were examined which appeared normal with no endobronchial mass or secretions. The bronchoscope was retracted out then and patient tolerated his procedure well with no immediate complications. Dictated by... Rachelle Hernández M.D. EA/addi Unit #: [id number] #: [id number] Patient: NICOLA DÍAZ TD: 11/28/2016 16:43 JOB #: [id number] PROCEDURE OPERATIVE NOTE Page 1 of 1 X RACHELLE NORIEGA MD PROCEDURE OPERATIVE NOTE
[~2016-11-26 14:38] MED LIST changes: +LEVAQUIN PO
[2016-11-26 15:28] LABS: BASOPHIL# 0.1 X10e3 (0-0.3); BASOPHIL% 0.4 % (0-2.5); EOSINOPHIL# 0.2 X10e3 (0-0.7); EOSINOPHIL% 1.5 % (0.0-7.0); HEMATOCRIT 32.5 % (38.0-50.0); HEMOGLOBIN 10.5 gm/dL (13.0-16.0); LYMPHOCYTE# 1.2 X10e3 (1.0-3.5); LYMPHOCYTE% 9.4 % (17.0-45.0); MEAN CELL VOLUME 87.8 FL (83-96); MEAN CORPUSCULAR HEMOGLOBIN 28.2 PG (28-34); MEAN CORPUSCULAR HGB CONC 32.2 g/dL (30-36); MEAN PLATELET VOLUME 6.9 FL (6.5-11.5); MONOCYTE# 0.7 X10e3 (0-1.0); MONOCYTE% 5.5 % (3.0-12.0); NEUTROPHIL# 11.1 X10e3 (1.5-7.1); NEUTROPHIL% 83.2 % (40-75); PLATELET COUNT 276 X10e3 (140-420); RED CELL DISTRIBUTION WIDTH 18.1 % (11.0-15.5); WHITE BLOOD COUNT 13.3 X10e3 (4.0-10.5)
[2016-11-26 15:30] LABS: DIFF IND NO
[2016-11-26 15:52] LABS: PARTIAL THROMBOPLASTIN TIME 27.8 SECONDS (23.5-31.3); PROTHROMBIN TIME (PATIENT) 10.8 SECONDS (10.0-11.7)
[2016-11-26 15:53] LABS: ALBUMIN SERUM 3.8 g/dL (3.5-5.0); BILIRUBIN, DIRECT 0.1 mg/dL (0.0-0.2); BILIRUBIN,INDIRECT 0.2 mg/dL (0.0-0.9); BILIRUBIN,TOTAL 0.3 mg/dL (0.2-2.0); BUN/CREATININE RATIO 9.09; CALCIUM SERUM 9.8 mg/dL (8.4-10.2); CREATININE SERUM 1.1 mg/dL (0.6-1.4); GLOM FILT RATE Estimated 78.4 mL/min (>60); POTASSIUM 3.5 mmol/L (3.5-5.1); PROTEIN TOTAL SERUM 7.6 g/dL (6.0-8.3)
[2016-11-26 19:31] LABS: CK TOTAL 38 IU/L (36-174)
[2016-11-27 00:48] LABS: HEMATOCRIT 31.2 % (38.0-50.0); MEAN CELL VOLUME 88.2 FL (83-96); MEAN CORPUSCULAR HEMOGLOBIN 28.2 PG (28-34); MEAN CORPUSCULAR HGB CONC 31.9 g/dL (30-36); MEAN PLATELET VOLUME 6.9 FL (6.5-11.5); RED BLOOD COUNT 3.54 X10e (3.90-5.60); RED CELL DISTRIBUTION WIDTH 17.9 % (11.0-15.5); WHITE BLOOD COUNT 10.9 X10e3 (4.0-10.5)
[2016-11-27 01:03] LABS: CK TOTAL 43 IU/L (36-174)
[2016-11-27 01:08] LABS: ALBUMIN SERUM 3.3 g/dL (3.5-5.0); BILIRUBIN,TOTAL 0.5 mg/dL (0.2-2.0); CALCIUM SERUM 8.7 mg/dL (8.4-10.2); POTASSIUM 3.1 mmol/L (3.5-5.1); PROTEIN TOTAL SERUM 6.5 g/dL (6.0-8.3)
[2016-11-27 09:24] LABS: CK TOTAL 32 IU/L (36-174)
[2016-11-27 11:50] LABS: LEGIONELLA AG URINE NEG (NEG)
[2016-11-28 06:34] LABS: HEMATOCRIT 29.5 % (38.0-50.0); HEMOGLOBIN 9.4 gm/dL (13.0-16.0); MEAN CELL VOLUME 89.1 FL (83-96); MEAN CORPUSCULAR HEMOGLOBIN 28.5 PG (28-34); RED BLOOD COUNT 3.31 X10e (3.90-5.60); RED CELL DISTRIBUTION WIDTH 17.8 % (11.0-15.5); WHITE BLOOD COUNT 5.8 X10e3 (4.0-10.5)
[2016-11-28 06:54] LABS: BILIRUBIN,TOTAL 0.4 mg/dL (0.2-2.0); CALCIUM SERUM 9.2 mg/dL (8.4-10.2); POTASSIUM 3.7 mmol/L (3.5-5.1); PROTEIN TOTAL SERUM 6.1 g/dL (6.0-8.3)
[2016-11-28 15:17] LABS: LEGIONELLA AG URINE NEG (NEG)
[2016-11-28 15:57] LABS: BODY FLUID APPEARANCE CLOUDY; BODY FLUID SOURCE BRONCHIAL LAVAGE
[2016-11-29 09:02] LABS: HEMOGLOBIN 10.3 gm/dL (13.0-16.0); MEAN CELL VOLUME 87.7 FL (83-96); MEAN CORPUSCULAR HEMOGLOBIN 27.5 PG (28-34); MEAN CORPUSCULAR HGB CONC 31.3 g/dL (30-36); RED BLOOD COUNT 3.76 X10e (3.90-5.60); RED CELL DISTRIBUTION WIDTH 17.9 % (11.0-15.5)
[2016-11-29 09:08] LABS: WHITE BLOOD COUNT 11.3 X10e3 (4.0-10.5)
[2016-11-29 09:42] LABS: ALBUMIN SERUM 3.2 g/dL (3.5-5.0); BILIRUBIN,TOTAL 0.8 mg/dL (0.2-2.0); BUN/CREATININE RATIO 7.27; CREATININE SERUM 1.1 mg/dL (0.6-1.4); GLOM FILT RATE Estimated 78.4 mL/min (>60); MAGNESIUM 1.9 mg/dL (1.6-3.0); POTASSIUM 3.3 mmol/L (3.5-5.1); PROTEIN TOTAL SERUM 6.6 g/dL (6.0-8.3)
[2016-11-30 06:03] LABS: HEMATOCRIT 29.7 % (38.0-50.0); HEMOGLOBIN 9.5 gm/dL (13.0-16.0); MEAN CELL VOLUME 87.7 FL (83-96); MEAN CORPUSCULAR HEMOGLOBIN 28.1 PG (28-34); MEAN PLATELET VOLUME 7.3 FL (6.5-11.5); RED BLOOD COUNT 3.39 X10e (3.90-5.60); RED CELL DISTRIBUTION WIDTH 17.8 % (11.0-15.5); WHITE BLOOD COUNT 7.4 X10e3 (4.0-10.5)
[2016-11-30 06:59] LABS: ALBUMIN SERUM 3.1 g/dL (3.5-5.0); BILIRUBIN,TOTAL 0.6 mg/dL (0.2-2.0); BUN/CREATININE RATIO 8.88; CALCIUM SERUM 8.9 mg/dL (8.4-10.2); CREATININE SERUM 0.9 mg/dL (0.6-1.4); GLOM FILT RATE Estimated 99.9 mL/min (>60); POTASSIUM 3.3 mmol/L (3.5-5.1); PROTEIN TOTAL SERUM 6.8 g/dL (6.0-8.3)
[2016-11-30] MEDS ORDERED: OMNICEF300 MG PO (09:57)
[2016-11-30] MEDS ORDERED: ZYVOX600 MG PO (09:57)
[2016-11-30] MEDS ORDERED: TESSALON PERLE100 M1 PO (09:57)
[2016-11-30] MEDS ORDERED: K-DUR20 ME2 PO (09:58)
[2016-12-01 16:18] LABS: ASPERGILLUS FLAVUS Negative (Negative); ASPERGILLUS FUMIGATUS Negative (Negative); ASPERGILLUS NIGER Negative (Negative); BLASTOMYCES ANTIBODY Negative (Negative); COCCIDIODES ANTIBODY Negative (Negative); CRYPTOCOCCAL AB <1:2 (()); CRYPTOCOCCAL AG SCREEN SOURCE Serum (()); CRYPTOCOCCAL SCREEN Not Detected (Not Detected); HISTOPLASMA AB Negative (Negative)
== END 2016-11-30 10:58 | disposition home or self-care (01) | DRG 166 ==
LOC: CED 14:38 → CEDOF 17:55 → CED 19:23 → C5B 19:23 → CEDOF 19:23 → C5B 21:46
PROVIDERS: Emergency Medicine; Family Medicine; Internal Medicine; Internal Medicine Hematology; Internal Medicine Pulmonary Disease
PROC: 0B9F8ZX Drainage of Right Lower Lung Lobe, Via Natural or Artificial Opening Endoscopic, Diagnostic (ICD-10-PCS; principal; 2016-11-28 09:10)
PROC: B24BZZZ Ultrasonography of Heart with Aorta (ICD-10-PCS; 2016-11-28 09:10)
DX: J44.0 Chronic obstructive pulmonary disease with (acute) lower respiratory infection (principal); J18.9 Pneumonia, unspecified organism; I50.32 Chronic diastolic (congestive) heart failure; Z85.118 Personal history of other malignant neoplasm of bronchus and lung; D64.9 Anemia, unspecified; R53.82 Chronic fatigue, unspecified; F31.9 Bipolar disorder, unspecified; F29 Unspecified psychosis not due to a substance or known physiological condition; F43.10 Post-traumatic stress disorder, unspecified; M79.7 Fibromyalgia; K58.9 Irritable bowel syndrome, unspecified; E87.6 Hypokalemia; Z90.49 Acquired absence of other specified parts of digestive tract; Z85.038 Personal history of other malignant neoplasm of large intestine; Z90.2 Acquired absence of lung [part of]; Z87.891 Personal history of nicotine dependence; Z83.6 Family history of other diseases of the respiratory system; Z88.5 Allergy status to narcotic agent; Z88.8 Allergy status to other drugs, medicaments and biological substances; K44.9 Diaphragmatic hernia without obstruction or gangrene; K22.70 Barrett's esophagus without dysplasia; R25.1 Tremor, unspecified
CPT/HCPCS: 36415; 71010; 71020; 71250; 80048; 80053; 80076; 80178; 80200; 80202; 82150; 82308; 82550; 82728; 83540; 83550; 83605; 83690; 83735; 84132; 84484; 85025; 85027; 85610; 85730; 86606; 86612; 86631; 86698; 87040; 87070; 87102; 87106; 87116; 87205; 87206; 87252; 87254; 87278; 87449; 87899; 88108; 88305; 88312; 89051; 93005; 93306; 94640; 94664; 94760; 96360; 97162; 97166; 99285; G8978-GP; G8979-GP; G8980-GP; G8987-GO; G8988-GO; G8989-GO; J0171; J0456; J1642; J2250; J2543; J2550; J3010; J3260; J3370; J3420; J3475

== ENCOUNTER → 2017-01-02 | Outpatient (CLI) | payer MEDICARE, OTHER ==
[~2017-01-02] MED LIST changes: +K-DUR20 ME2 PO; +OMNICEF300 MG PO; +TESSALON PERLE100 M1 PO; +ZYVOX600 MG PO
--- NOTE | ~2017-01-02 | CT2 ---
[facility] A Service of [facility] RADIOLOGY TEXT RESULTS PATIENT: NICOLA DÍAZ LOCATION: [facility] : [birth year] UNIT #: [id number] AGE: [address]: Ko Jang MD SEX: M ORDER DR: [id number] [facility] [address] [place], [place] [address] [id number] O MR#: [id number] [facility] #: [id number] NAME: NICOLA DÍAZ : 1965 SEX: M STUDY DATE/TIME: 01/02/2017 12:16 [facility] RO[facility]: STUDY DESCRIPTION: CT Abd and Pelv W Cont Attending Physician: Ko Jang M.D. Referring Physician: Ko Jang M.D. Ordering Physician: Ko Jang M.D. Primary Care Physician: Renee Tracey M.D. MEDICAL IMAGING REPORT This report is preliminary unless electronic signature is present EXAM CT abdomen and pelvis with contrast, 01/02/2017 HISTORY Stage 4 lung cancer, history of radiation therapy completed about 5-1/2 weeks ago. Chemotherapy completed about 2-1/2 half months ago. Right upper lobe lung resection. Vomiting two to three times per week for the past 6 months, cough and shortness of breath for 2 years. Additional history of colon cancer with colon resection. COPD. Previous appendectomy and cholecystectomy. Observation for metastatic disease. Restaging. COMPARISON PET/CT 04/25/2016. CT abdomen and pelvis without contrast 10/22/2016. PROCEDURE 5.0 mm axial images from the lung bases through the lesser trochanters after intravenous contrast administration. Enteric contrast was not administered. Sagittal and coronal reformatted images were obtained. This CT exam was performed with one or more of the following radiation dose reduction techniques: automatic exposure control, adjustment of mA and/or kV according to patient size, and iterative reconstruction. FINDINGS Cholecystectomy changes. No biliary dilation. No focal liver lesions identified. The spleen, pancreas, adrenals and left kidney are within normal limits. Nonobstructing stone in the right kidney measures approximately 3.0 mm. No pathologically enlarged lymph nodes are identified and there is no ascites. The bowel appears nonthickened and noninflamed. The appendix, according to history, is surgically absent. Appendiceal stump has a normal appearance. There is [id number]-[id number] atherosclerotic plaquing within the infrarenal abdominal aorta and common STS. [facility] A Service of [facility] RADIOLOGY TEXT RESULTS PATIENT: NICOLA DÍAZ LOCATION: [facility] : [birth year] UNIT #: [id number] AGE: [address]: Ko Jang MD SEX: M ORDER DR: iliac arteries without aneurysm or flowing limiting stenosis seen. PELVIS FINDINGS: Urinary bladder, prostate and rectum are normal. No pelvic adenopathy or free fluid is identified. Moderate stool burden within the sigmoid colon. Facet arthropathy at L5-S1 on the left. No acute or suspicious osseous abnormalities. Patchy parenchymal densities are demonstrated within the right lung base, worrisome for pneumonia or sequelae of aspiration. Persistent concentric thickening of the lower thoracic esophagus with shotty paraesophageal lymph nodes, nonspecific. IMPRESSION 1. No convincing metastatic disease in the abdomen and pelvis in this patient with a dual history of colon cancer and lung cancer. 2. Patchy parenchymal densities are demonstrated within the right lung base which may represent pneumonia or sequelae of aspiration. Additionally, there is persistent mild concentric thickening of the lower thoracic esophagus with shotty paraesophageal nodes, nonspecific but could represent changes of esophagitis. Correlate with clinical history. 3. CT chest performed on this same day has been dictated separately. 4. Cholecystectomy, appendectomy. 5. Nonobstructing right renal stone. Dictated by... Talisha Glez M.D. THIS IS AN ELECTRONICALLY VERIFIED REPORT Talisha Glez M.D. at 01/03/2017 8:49 AM Timo TD: 01/02/2017 16:26 JOB #: [id number] MEDICAL IMAGING REPORT Page 1 of 1 COPY
--- NOTE | ~2017-01-02 | CT55 ---
[facility] A Service of [facility] RADIOLOGY TEXT RESULTS PATIENT: NICOLA DÍAZ LOCATION: [facility] EDT : [birth year] UNIT #: [id number] AGE: [address]: Ko Jang MD SEX: M ORDER DR: [id number] [facility] [address] [place], [place] [address] [id number] O MR#: [id number] [facility] #: [id number] NAME: NICOLA DÍAZ : 1965 SEX: M STUDY DATE/TIME: 01/02/2017 13:02 UNIT: [facility] ROOM: STUDY DESCRIPTION: CT Chest W Con Attending Physician: Ko Jang M.D. Referring Physician: Ko Jang M.D. Ordering Physician: Ko Jang M.D. Primary Care Physician: Renee Tracey M.D. MEDICAL IMAGING REPORT This report is preliminary unless electronic signature is present EXAM CT chest with contrast 01/02/2017 HISTORY Stage IV lung cancer follow up. History of right upper lobe resection. Chemotherapy completed 2.5 months ago. Radiation therapy completed 5.5 weeks ago. Cough and shortness breath for 2 years. Vomiting two to three times per week for the past 6 months. Additional history of colon cancer, COPD, emphysema. COMPARISON CT chest without contrast 11/27/2016. TECHNIQUE 5 mm axial images through the chest after intravenous contrast administration. Sagittal and coronal reformatted images were obtained. This CT exam was performed with one or more of the following radiation dose reduction techniques: automatic exposure control, adjustment of mA and/or kV according to patient size, and iterative reconstruction. FINDINGS Surgical changes of right upper lobe lung resection are noted. There is extensive reticular nodular and tree-in-bud nodular densities are scattered throughout the right lung. The more focal consolidative change within the right lower lobe on 11/27/2016 appears improved or largely resolved. Peripheral patchy alveolar density is present in the subpleural left upper lobe, increased or more dense than on the prior exam. New ill-defined ground-glass density is present within the superior left lower lobe. Background emphysematous changes are present. Multiple old right rib STS. [facility] A Service of [facility] & [facility] RADIOLOGY TEXT RESULTS PATIENT: NICOLA DÍAZ LOCATION: [facility] : [birth year] UNIT #: [id number] AGE: [address]: Ko Jang MD SEX: M ORDER DR: fractures likely related to previous thoracotomy. Ill-defined soft tissue thickening is demonstrated within the mediastinum, anterior to the right mainstem bronchus, posterior to the SVC, measuring slightly over 1 cm, not thought to be significantly changed. More ill-defined soft tissue thickening in the right upper paratracheal region is likewise stable. Right IJ Port-A-Cath extends to the SVC. Small amount of pericardial fluid on the anterior-inferior cardiac margin is unchanged. Cholecystectomy. Included upper abdominal organs appear unremarkable. IMPRESSION 1. Mild right basilar consolidation has improved and largely resolved since 11/27/2016. There are new diffuse reticulonodular interstitial and tree-in-bud nodular infiltrates predominately throughout the right lung, favored to represent changes of small airways infectious-inflammatory process. Additionally, there is a new patchy ground-glass density in the superior left lower lobe. Previously described airspace disease in the left upper lobe along the pleural margin has increased, as well. Findings are favored to represent benign etiology. Certainly, aspiration could be considered. 2. Surgical changes of partial right lung resection. Ill-defined soft tissue thickening in the right paratracheal region extending anterior to the right mainstem bronchus is unchanged from prior exam, may represent sequelae of previous surgical or radiation therapy. 3. Additional CT findings include: Emphysema, old right rib fractures, stable small anterior pericardial effusion, cholecystectomy. Dictated by... Talisha Glez M.D. THIS IS AN ELECTRONICALLY VERIFIED REPORT Talisha Glez M.D. at 01/04/2017 1:53 PM SHANTA/laquita TD: 01/03/2017 20:02 JOB #: [id number] MEDICAL IMAGING REPORT Page 1 of 1 COPY
[2017-01-02 12:46] LABS: POC - CREATININE 1.11 mg/dL (0.64-1.27); POC - GFR >60.0 mL/min (>60)
== END | disposition home or self-care (01) ==
LOC: CCAT 12-19 13:00
PROVIDERS: Internal Medicine Hematology
DX: Z08 Encounter for follow-up examination after completed treatment for malignant neoplasm (principal); R91.8 Other nonspecific abnormal finding of lung field; J43.9 Emphysema, unspecified; I31.3 Pericardial effusion (noninflammatory); N20.0 Calculus of kidney; J98.4 Other disorders of lung; K22.8 Other specified diseases of esophagus; Z85.038 Personal history of other malignant neoplasm of large intestine; Z90.49 Acquired absence of other specified parts of digestive tract; Z90.2 Acquired absence of lung [part of]; Z85.118 Personal history of other malignant neoplasm of bronchus and lung; Z79.899 Other long term (current) drug therapy
CPT/HCPCS: 71260; 74177; 82565; J1642; Q9967

== ENCOUNTER → 2017-01-25 | Outpatient (CLI) | payer MEDICARE ==
--- NOTE | ~2017-01-25 | CR63 ---
[facility] A Service of [facility] RADIOLOGY TEXT RESULTS PATIENT: NICOLA DÍAZ LOCATION: [facility] : [birth year] UNIT #: [id number] AGE: [address]: RACHELLE NORIEGA MD SEX: M ORDER DR: [id number] [facility] [address] [place], [place] [address] [id number] O MR#: [id number] Acc #: [id number] NAME: NICOLA DÍAZ : 1965 SEX: M STUDY DATE/TIME: 01/25/2017 10:06 UNIT: [facility] ROOM: STUDY DESCRIPTION: CR Chest 2 View Ordering Physician: Jessie Garcia Physician Primary Care Physician: Renee Tracey M.D. MEDICAL IMAGING REPORT This report is preliminary unless electronic signature is present EXAM PA and lateral chest radiograph INDICATIONS Chronic cough since May 2016. COMPARISON STUDIES 11/29/2016. FINDINGS The right internal jugular vein catheter extends into the superior vena cava. Cardiomediastinal silhouette is unchanged. Infiltrates throughout the right lung appear improved when compared to the prior examination. There are some lucencies seen involving the right lung apex, however the appearance is stable when compared to 11/02/2016. There is increasing density seen within the left mid lung when compared to prior studies, which could reflect evolving infiltrate. Background changes of COPD are noted. No aggressive osseous abnormalities are seen. IMPRESSION 1. Interval improvement of right-sided infiltrates. 2. Increasing opacity within the left mid lung may reflect pneumonia, however very short-term follow-up exam is recommended to document resolution. Dictated by... Sophia Rivera M.D. THIS IS AN ELECTRONICALLY VERIFIED REPORT Sophia Rivera M.D. at 01/28/2017 4:57 PM AFF/pcl [facility] A Service [facility] RADIOLOGY TEXT RESULTS PATIENT: NICOLA DÍAZ LOCATION: [facility] : [birth year] UNIT #: [id number] AGE: [address]: RACHELLE NORIEGA MD SEX: M ORDER DR: TD: 01/25/2017 20:13 JOB #: [id number] MEDICAL IMAGING REPORT Page 1 of 1 COPY
[2017-01-25 10:21] LABS: HEMATOCRIT 33.7 % (38.0-50.0); HEMOGLOBIN 11.2 gm/dL (13.0-16.0); MEAN CELL VOLUME 79.3 FL (83-96); MEAN CORPUSCULAR HEMOGLOBIN 26.4 PG (28-34); MEAN CORPUSCULAR HGB CONC 33.2 g/dL (30-36); MEAN PLATELET VOLUME 6.9 FL (6.5-11.5); RED BLOOD COUNT 4.24 X10e (3.90-5.60); RED CELL DISTRIBUTION WIDTH 18.5 % (11.0-15.5); WHITE BLOOD COUNT 12.4 X10e3 (4.0-10.5)
== END | disposition home or self-care (01) ==
LOC: CLAB 09:24
PROVIDERS: Internal Medicine Pulmonary Disease
DX: R05 Cough (principal); R91.8 Other nonspecific abnormal finding of lung field; C34.90 Malignant neoplasm of unspecified part of unspecified bronchus or lung
CPT/HCPCS: 36415; 71020; 85027; 87070; 87205